=== PATIENT | female | born 1945 | race Caucasian/White ===

== ENCOUNTER 2018-04-18 18:46 | Inpatient (IN) | payer MEDICARE, BC ==
[~2018-04-18] VITALS: Ht 165.1 cm; Wt 107.0 kg
[2018-04-18] MEDS ORDERED: normal saline 1000ml 1,000 ML IV ONE (20:25)
[2018-04-18] MEDS ORDERED: ondansetron/PF 4mg/2ml inj IV ONE (20:30)
[2018-04-18] MEDS ORDERED: HYDROmorphone 1 mg/ml syringe IV ONE (20:30)
[2018-04-18] MEDS ORDERED: FENO135C PO (21:13)
[2018-04-18] MEDS ORDERED: HYDR-4353 PO (21:13)
[2018-04-18] MEDS ORDERED: ASPI-611 PO (21:13)
[2018-04-18] MEDS ORDERED: CARV25TA PO (21:13)
[2018-04-18] MEDS ORDERED: CLON-529 PO (21:13)
[2018-04-18] MEDS ORDERED: BENA40TA73 PO (21:13)
[2018-04-18] MEDS ORDERED: LOSA50TA3 PO (21:13)
[2018-04-18] MEDS ORDERED: SPIR25TA5 PO (21:13)
[2018-04-18 21:16] LABS: BASOPHILS % (AUTO) 0.2 % (0-1); EOSINOPHILS # (AUTO) 0.1 X10'3 (0-0.9); HEMATOCRIT 43.1 % (35.0-45.0); HEMOGLOBIN 14.4 g/dl (12.0-16.0); LYMPHOCYTES # (AUTO) 0.3 X10'3 (1.1-4.8); LYMPHOCYTES % (AUTO) 3.1 % (21-51); MEAN CORPUSCULAR HEMOGLOBIN 29.5 PG (27.0-31.0); MEAN CORPUSCULAR HGB CONC 33.3 % (33.0-36.5); MEAN CORPUSCULAR VOLUME 88.7 FL (78-98); MEAN PLATELET VOLUME 7.7 FL (7.4-10.4); MONOCYTES # (AUTO) 0.6 X10'3 (0-0.9); MONOCYTES % (AUTO) 5.6 % (2-12); NEUTROPHILS # (AUTO) 9.1 X10'3 (1.8-7.7); NEUTROPHILS % (AUTO) 90.1 % (42-75); PLATELET COUNT 225 X10'3 (140-440); RED BLOOD COUNT 4.86 X10'6 (4.20-5.60); RED CELL DISTRIBUTION WIDTH 14.9 % (11.5-14.5); WHITE BLOOD COUNT 10.1 X10'3 (4.5-11.0)
[2018-04-18 21:31] LABS: ALANINE AMINOTRANSFERASE 89 U/L (12-78); ALKALINE PHOSPHATASE 61 IU/L (46-116); ANION GAP 13 (8-16); ASPARTATE AMINO TRANSFERASE 43 U/L (10-37); BILIRUBIN,TOTAL 4.8 MG/DL (0.1-1.0); BLOOD UREA NITROGEN 20 MG/DL (7-18); BUN/CREATININE RATIO 18.7 (6.6-38.0); CALCIUM 8.1 MG/DL (8.5-10.1); CHLORIDE 99 MMOL/L (99-107); CREATININE 1.07 MG/DL (0.40-0.90); GLUCOSE 143 MG/DL (70-104); POTASSIUM 3.8 MMOL/L (3.5-5.1); SODIUM 137 MMOL/L (135-145); eGFR 50 ML/MIN
[2018-04-18 21:55] LABS: ALBUMIN/GLOBULIN RATIO 1.2 (1.1-1.5); TOTAL PROTEIN 5.6 G/DL (6.4-8.2)
[2018-04-18 21:56] LABS: AMYLASE 1425 U/L (25-115); LIPASE 14327 U/L (73-393)
[2018-04-18 22:08] LABS: INR 1.1 INR; PROTHROMBIN TIME 11.4 SECONDS (9.0-12.0)
[2018-04-18] MEDS ORDERED: carVEDilol 12.5mg tablet PO SCH (23:00)
[2018-04-18] MEDS ORDERED: losartan 50mg tablet PO SCH (23:00)
[2018-04-18] MEDS ORDERED: spironolactone 25 MG tablet PO SCH (23:00)
[2018-04-18] MEDS ORDERED: HYDROcodone/acetaminophen 10/325mg tab PO ONE (23:00)
[2018-04-18] MEDS ORDERED: lisinopril 10 MG tablet PO ONE (23:00)
[2018-04-18] MEDS ORDERED: HYDROmorphone 2mg tablet PO PRN (23:00)
[2018-04-19] VITALS (18 sets, daily range): BP systolic 89–182; BP diastolic 49–82
[2018-04-19 00:38] LABS: CLARITY,URINE SLIGHTLY CLOUDY (Clear); COLOR,URINE ORANGE (Yellow)
[2018-04-19 00:40] LABS: UA COLLECTION TYPE CLN CATCH MIDSTREAM
[2018-04-19 00:58] LABS: BACTERIA,URINE 4+ /HPF (Neg); SQUAMOUS EPITHELIAL CELL,UR FEW /LPF (FEW)
[2018-04-19 00:59] LABS: WBC,URINE 30-50 /HPF (0-4)
[2018-04-19] MEDS ORDERED: ondansetron/PF 4mg/2ml inj IV PRN (01:50)
[2018-04-19] MEDS ORDERED: mag hydrox/Alum hydrox/simeth 30ml oral suspension PO PRN (01:50)
[2018-04-19] MEDS ORDERED: docusate sod 100mg capsule PO PRN (01:50)
[2018-04-19] MEDS ORDERED: magnesium hydroxide 30ml (MOM) UD suspension PO PRN (01:50)
[2018-04-19] MEDS: normal saline 1000ml 1,000 ML IV SCH ×3 (04:00→14:49)
[2018-04-19] MEDS: HYDROmorphone 1 mg/ml syringe IV PRN ×2 (04:00→14:50)
[2018-04-19 05:59] LABS: BASOPHILS % (AUTO) 0 % (0-1); EOSINOPHILS % (AUTO) 0 % (0-6); HEMOGLOBIN 14.6 g/dl (12.0-16.0); LYMPHOCYTES # (AUTO) 0.3 X10'3 (1.1-4.8); LYMPHOCYTES % (AUTO) 2.4 % (21-51); MEAN CORPUSCULAR HEMOGLOBIN 29.4 PG (27.0-31.0); MEAN CORPUSCULAR HGB CONC 33.3 % (33.0-36.5); MEAN CORPUSCULAR VOLUME 88.4 FL (78-98); MEAN PLATELET VOLUME 7.9 FL (7.4-10.4); MONOCYTES # (AUTO) 0.7 X10'3 (0-0.9); MONOCYTES % (AUTO) 5.8 % (2-12); NEUTROPHILS # (AUTO) 10.5 X10'3 (1.8-7.7); NEUTROPHILS % (AUTO) 91.8 % (42-75); PLATELET COUNT 189 X10'3 (140-440); RED BLOOD COUNT 4.98 X10'6 (4.20-5.60); WHITE BLOOD COUNT 11.4 X10'3 (4.5-11.0)
[2018-04-19 06:28] LABS: ALANINE AMINOTRANSFERASE 158 U/L (12-78); ALBUMIN 2.8 G/DL (3.4-5.0); ALKALINE PHOSPHATASE 85 IU/L (46-116); ASPARTATE AMINO TRANSFERASE 192 U/L (10-37); BILIRUBIN,TOTAL 10.3 MG/DL (0.1-1.0)
[2018-04-19 06:41] LABS: ALBUMIN 2.8 G/DL (3.4-5.0); ANION GAP 13 (8-16); BLOOD UREA NITROGEN 21 MG/DL (7-18); BUN/CREATININE RATIO 20.6 (6.6-38.0); CALCIUM 8.2 MG/DL (8.5-10.1); CHLORIDE 100 MMOL/L (99-107); CREATININE 1.02 MG/DL (0.40-0.90); GLUCOSE 134 MG/DL (70-104); SODIUM 138 MMOL/L (135-145); TOTAL CARBON DIOXIDE 24.8 MMOL/L (24-32); eGFR 53 ML/MIN
[2018-04-19 06:43] LABS: BILIRUBIN,DIRECT 9.7 MG/DL (0-0.3); TOTAL PROTEIN 5.5 G/DL (6.4-8.2)
[2018-04-19 06:49] LABS: POTASSIUM 3.6 MMOL/L (3.5-5.1)
[2018-04-19 06:53] LABS: LIPASE 7327 U/L (73-393)
[2018-04-19] MEDS: cloNIDine 0.1 mg tablet PO SCH (08:17)
[2018-04-19] MEDS: carVEDilol 12.5mg tablet PO SCH (08:17)
[2018-04-19] MEDS: spironolactone 25 MG tablet PO SCH ×2 (08:17→21:48)
[2018-04-19] MEDS: losartan 50mg tablet PO SCH (08:18)
[2018-04-19] MEDS: lisinopril 20mg tablet PO SCH (08:18)
[2018-04-19] MEDS ORDERED: meperidine/PF 100mg/ml syringe ONE (17:35)
[2018-04-19] MEDS ORDERED: MIDAZolam 5mg/5ml vial ONE (17:36)
[2018-04-19] MEDS ORDERED: diphenhydrAMINE 50 mg/ml inj ONE (17:36)
[2018-04-19] MEDS ORDERED: fentaNYL/PF 50MCG/1 ML 2ML syringe ONE (17:36)
[2018-04-19] MEDS ORDERED: glucagon, human recombinant 1mg kit ONE (17:39)
[2018-04-19] MEDS ORDERED: levoFLOXACIN-Levaquin 500mg/D5 100 ML IV ONE (19:20)
[2018-04-20] MEDS: HYDROmorphone 1 mg/ml syringe IV PRN ×3 (00:48→14:00)
[2018-04-20 04:00] VITALS: BP 149/51
[2018-04-20] MEDS: normal saline 1000ml 1,000 ML IV SCH ×3 (04:34→23:53)
[2018-04-20 05:59] LABS: BASOPHILS % (AUTO) 0 % (0-1); EOSINOPHILS % (AUTO) 0.2 % (0-6); HEMATOCRIT 38.1 % (35.0-45.0); HEMOGLOBIN 12.6 g/dl (12.0-16.0); LYMPHOCYTES # (AUTO) 0.3 X10'3 (1.1-4.8); LYMPHOCYTES % (AUTO) 2.3 % (21-51); MEAN CORPUSCULAR HEMOGLOBIN 29.6 PG (27.0-31.0); MEAN CORPUSCULAR HGB CONC 33.2 % (33.0-36.5); MEAN CORPUSCULAR VOLUME 89.2 FL (78-98); MEAN PLATELET VOLUME 8.5 FL (7.4-10.4); MONOCYTES # (AUTO) 0.4 X10'3 (0-0.9); MONOCYTES % (AUTO) 3.5 % (2-12); NEUTROPHILS # (AUTO) 11.3 X10'3 (1.8-7.7); PLATELET COUNT 167 X10'3 (140-440); RED BLOOD COUNT 4.27 X10'6 (4.20-5.60); RED CELL DISTRIBUTION WIDTH 15.7 % (11.5-14.5); WHITE BLOOD COUNT 12.1 X10'3 (4.5-11.0)
[2018-04-20 06:09] LABS: ALBUMIN 2.3 G/DL (3.4-5.0); ANION GAP 11 (8-16); BLOOD UREA NITROGEN 34 MG/DL (7-18); CALCIUM 7.3 MG/DL (8.5-10.1); CHLORIDE 100 MMOL/L (99-107); CREATININE 2.26 MG/DL (0.40-0.90); GLUCOSE 81 MG/DL (70-104); POTASSIUM 3.9 MMOL/L (3.5-5.1); SODIUM 135 MMOL/L (135-145); eGFR 21 ML/MIN
[2018-04-20 07:33] VITALS: BP 114/62
[2018-04-20] MEDS: cloNIDine 0.1 mg tablet PO SCH (08:00)
[2018-04-20] MEDS: losartan 50mg tablet PO SCH (08:00)
[2018-04-20] MEDS: lisinopril 20mg tablet PO SCH (08:00)
[2018-04-20] MEDS: carVEDilol 12.5mg tablet PO SCH (08:01)
[2018-04-20] MEDS: spironolactone 25 MG tablet PO SCH ×2 (08:01→20:37)
[2018-04-20 11:29] VITALS: BP 135/55
[2018-04-20 12:31] LABS: ALANINE AMINOTRANSFERASE 139 U/L (12-78); ASPARTATE AMINO TRANSFERASE 70 U/L (10-37); LIPASE 1006 U/L (73-393)
[2018-04-20 12:44] LABS: ALBUMIN 2.3 G/DL (3.4-5.0); ALBUMIN/GLOBULIN RATIO 0.8 (1.1-1.5); ALKALINE PHOSPHATASE 78 IU/L (46-116); BILIRUBIN,DIRECT 4.1 MG/DL (0-0.3); BILIRUBIN,TOTAL 4.6 MG/DL (0.1-1.0); TOTAL PROTEIN 5.1 G/DL (6.4-8.2)
[2018-04-20] MEDS: HYDROcodone/acetaminophen 10/325mg tab PO PRN ×2 (17:39→23:52)
[2018-04-20] MEDS ORDERED: LORazepam 0.5 MG tablet PO ONE (19:20)
[2018-04-20 20:00] VITALS: BP 147/60
[2018-04-20] MEDS ORDERED: losartan 50mg tablet PO SCH (21:00)
[2018-04-20] MEDS ORDERED: CefTRIAXone/D5W-Rocephin 1gm 50 ML IV SCH (21:00)
[2018-04-21] VITALS (10 sets, daily range): BP systolic 104–155; BP diastolic 50–86
[2018-04-21] MEDS ORDERED: normal saline 500ml IV soln 500 ML IV ONE (03:40)
[2018-04-21 05:43] LABS: BASOPHILS % (AUTO) 0.1 % (0-1); EOSINOPHILS % (AUTO) 0 % (0-6); HEMATOCRIT 36.2 % (35.0-45.0); LYMPHOCYTES # (AUTO) 0.4 X10'3 (1.1-4.8); LYMPHOCYTES % (AUTO) 3.2 % (21-51); MEAN CORPUSCULAR HEMOGLOBIN 29.6 PG (27.0-31.0); MEAN CORPUSCULAR HGB CONC 33.1 % (33.0-36.5); MEAN CORPUSCULAR VOLUME 89.4 FL (78-98); MONOCYTES # (AUTO) 0.5 X10'3 (0-0.9); MONOCYTES % (AUTO) 4.5 % (2-12); NEUTROPHILS # (AUTO) 10.2 X10'3 (1.8-7.7); NEUTROPHILS % (AUTO) 92.2 % (42-75); PLATELET COUNT 181 X10'3 (140-440); RED BLOOD COUNT 4.05 X10'6 (4.20-5.60); RED CELL DISTRIBUTION WIDTH 15.6 % (11.5-14.5); WHITE BLOOD COUNT 11.1 X10'3 (4.5-11.0)
[2018-04-21 06:12] LABS: ALANINE AMINOTRANSFERASE 95 U/L (12-78); ALBUMIN 2.1 G/DL (3.4-5.0); ALBUMIN/GLOBULIN RATIO 0.7 (1.1-1.5); ALKALINE PHOSPHATASE 66 IU/L (46-116); ANION GAP 12 (8-16); ASPARTATE AMINO TRANSFERASE 36 U/L (10-37); BILIRUBIN,TOTAL 2.4 MG/DL (0.1-1.0); BLOOD UREA NITROGEN 47 MG/DL (7-18); BUN/CREATININE RATIO 16.2 (6.6-38.0); CALCIUM 7.4 MG/DL (8.5-10.1); CHLORIDE 101 MMOL/L (99-107); GLUCOSE 78 MG/DL (70-104); SODIUM 135 MMOL/L (135-145); TOTAL CARBON DIOXIDE 21.7 MMOL/L (24-32); TOTAL PROTEIN 5.1 G/DL (6.4-8.2); eGFR 16 ML/MIN
[2018-04-21] MEDS: cloNIDine 0.1 mg tablet PO SCH (08:00)
[2018-04-21] MEDS: lisinopril 20mg tablet PO SCH (08:00)
[2018-04-21] MEDS: normal saline 1000ml 1,000 ML IV SCH (08:17)
[2018-04-21] MEDS: carVEDilol 12.5mg tablet PO SCH (08:18)
[2018-04-21] MEDS: spironolactone 25 MG tablet PO SCH (08:19)
[2018-04-21] MEDS: HYDROcodone/acetaminophen 10/325mg tab PO PRN ×2 (08:19→22:43)
[2018-04-21 13:04] LABS: TROPONIN I 0.18 NG/ML (0.0-0.05)
[2018-04-21] MEDS ORDERED: furosemide 20 MG/2 ML vial IV SCH (13:50)
[2018-04-21 15:31] LABS: ABG BASE EXCESS -7.9 mmol/L (-2.0-3.0); ABG HCO3 21.3 mmol/L (22.0-26.0); ABG OXYGEN SATURATION 96.3 % (95-98); ABG PCO2 (T) 60.4 mmHg (32.0-45.0); ABG PH (T) 7.165 (7.350-7.450); ALLEN'S TEST Positive; FCOHb 0.2 % (0.5-1.5); FMetHb 0.5 % (0.3-1.12); FO2Hb 95.6 % (94-100); TOTAL HEMOGLOBIN 12.9 G/dl (12.0-16.0)
[2018-04-21] MEDS: cefepime 1GM/NS ADD-VANTAGE 100 ML IV SCH ×2 (16:45→17:40)
[2018-04-21] MEDS: HYDROmorphone 1 mg/ml syringe IV PRN ×2 (16:46→20:37)
[2018-04-21 17:39] LABS: TROPONIN I 0.18 NG/ML (0.0-0.05)
[2018-04-21 17:51] LABS: ABG BASE EXCESS -8.6 mmol/L (-2.0-3.0); ABG HCO3 20.4 mmol/L (22.0-26.0); ABG OXYGEN SATURATION 96.1 % (95-98); ABG PCO2 (T) 57.3 mmHg (32.0-45.0); ABG PH (T) 7.169 (7.350-7.450); ABG PO2 (T) 88.5 mmHg (83-108); ALLEN'S TEST Positive; FCOHb 0.2 % (0.5-1.5); FMetHb 0.3 % (0.3-1.12); FO2Hb 95.6 % (94-100); MINUTE VOLUME 7 L/min; RESPIRATORY RATE 14 b/min; RESPIRATORY RATE (OBSERVED) 18 b/min; TOTAL HEMOGLOBIN 12.8 G/dl (12.0-16.0)
[2018-04-21] MEDS: linezolid 600mg/300ml PREMIX 300 ML IV SCH (19:53)
[2018-04-21] MEDS: furosemide 40mg/4ml inj IV SCH (19:53)
[2018-04-21] MEDS ORDERED: triamcinolone acet 0.1% cream 15gm TP SCH (20:00)
[2018-04-21] MEDS: hydrALAZINE 20mg/ml inj. IV SCH (20:06)
[2018-04-21 20:45] LABS: ABG BASE EXCESS -10.2 mmol/L (-2.0-3.0); ABG HCO3 17.1 mmol/L (22.0-26.0); ABG PH (T) 7.233 (7.350-7.450); ABG PO2 (T) 86.7 mmHg (83-108); ALLEN'S TEST Positive; FCOHb 0.4 % (0.5-1.5); FMetHb 0.3 % (0.3-1.12); FO2Hb 96.3 % (94-100); MINUTE VOLUME 8 L/min; RESPIRATORY RATE 14 b/min; RESPIRATORY RATE (OBSERVED) 15 b/min; TOTAL HEMOGLOBIN 12.9 G/dl (12.0-16.0)
[2018-04-21 21:59] LABS: ALBUMIN 2.3 G/DL (3.4-5.0); ANION GAP 15 (8-16); CALCIUM 7.4 MG/DL (8.5-10.1); CHLORIDE 98 MMOL/L (99-107); CREATININE 2.93 MG/DL (0.40-0.90); GLUCOSE 89 MG/DL (70-104); POTASSIUM 4.3 MMOL/L (3.5-5.1); SODIUM 133 MMOL/L (135-145); TOTAL CARBON DIOXIDE 19.7 MMOL/L (24-32); eGFR 16 ML/MIN
[2018-04-21 22:08] LABS: BLOOD UREA NITROGEN 54 MG/DL (7-18); BUN/CREATININE RATIO 18.4 (6.6-38.0)
[2018-04-22] VITALS (23 sets, daily range): BP systolic 90–155; BP diastolic 48–69
[2018-04-22] MEDS: HYDROmorphone 1 mg/ml syringe IV PRN ×4 (00:28→23:13)
[2018-04-22] MEDS: hydrALAZINE 20mg/ml inj. IV SCH ×4 (02:25→19:51)
[2018-04-22] MEDS: HYDROcodone/acetaminophen 10/325mg tab PO PRN ×3 (05:04→19:36)
[2018-04-22 05:05] LABS: BASOPHILS % (AUTO) 0.1 % (0-1); EOSINOPHILS % (AUTO) 0 % (0-6); HEMATOCRIT 36.8 % (35.0-45.0); HEMOGLOBIN 12.1 g/dl (12.0-16.0); LYMPHOCYTES # (AUTO) 0.2 X10'3 (1.1-4.8); LYMPHOCYTES % (AUTO) 2.4 % (21-51); MEAN CORPUSCULAR HEMOGLOBIN 29.3 PG (27.0-31.0); MEAN CORPUSCULAR HGB CONC 32.7 % (33.0-36.5); MEAN CORPUSCULAR VOLUME 89.5 FL (78-98); MEAN PLATELET VOLUME 8.5 FL (7.4-10.4); MONOCYTES # (AUTO) 0.6 X10'3 (0-0.9); MONOCYTES % (AUTO) 5.6 % (2-12); NEUTROPHILS # (AUTO) 9.4 X10'3 (1.8-7.7); NEUTROPHILS % (AUTO) 91.9 % (42-75); PLATELET COUNT 204 X10'3 (140-440); RED BLOOD COUNT 4.11 X10'6 (4.20-5.60); RED CELL DISTRIBUTION WIDTH 15.6 % (11.5-14.5); WHITE BLOOD COUNT 10.3 X10'3 (4.5-11.0)
[2018-04-22 05:41] LABS: ALANINE AMINOTRANSFERASE 73 U/L (12-78); ALBUMIN 2.1 G/DL (3.4-5.0); ALBUMIN/GLOBULIN RATIO 0.6 (1.1-1.5); ALKALINE PHOSPHATASE 67 IU/L (46-116); ANION GAP 14 (8-16); ASPARTATE AMINO TRANSFERASE 23 U/L (10-37); BILIRUBIN,TOTAL 1.5 MG/DL (0.1-1.0); BLOOD UREA NITROGEN 56 MG/DL (7-18); BUN/CREATININE RATIO 21.5 (6.6-38.0); CALCIUM 7.6 MG/DL (8.5-10.1); CHLORIDE 98 MMOL/L (99-107); CREATININE 2.61 MG/DL (0.40-0.90); GLUCOSE 78 MG/DL (70-104); MAGNESIUM 1.3 MG/DL (1.5-2.4); PHOSPHORUS 5.2 MG/DL (2.3-4.5); POTASSIUM 3.9 MMOL/L (3.5-5.1); SODIUM 133 MMOL/L (135-145); TOTAL CARBON DIOXIDE 21.2 MMOL/L (24-32); TOTAL PROTEIN 5.4 G/DL (6.4-8.2); eGFR 18 ML/MIN
[2018-04-22 06:38] LABS: TOTAL CELLS COUNTED 100
[2018-04-22 06:39] LABS: ANISOCYTOSIS 1+; PLATELET ESTIMATE NORMAL
[2018-04-22 06:40] LABS: TOXIC VACUOLATION 1+
[2018-04-22] MEDS: linezolid 600mg/300ml PREMIX 300 ML IV SCH ×2 (08:31→19:51)
[2018-04-22] MEDS: furosemide 40mg/4ml inj IV SCH ×2 (08:33→21:46)
[2018-04-22] MEDS: carVEDilol 12.5mg tablet PO SCH (09:43)
[2018-04-22] MEDS: cloNIDine 0.1 mg tablet PO SCH (09:43)
[2018-04-22] MEDS: metroNIDAZOLE-Flagyl 500mg/NS 100 ML IV SCH ×2 (16:27→23:13)
[2018-04-22] MEDS: lactobacillus rhamnosus 10,000 MMU CELLS/CAPSULE PO SCH (19:35)
[2018-04-22] MEDS ORDERED: albumin (human) 25% 100 ML IV solution IV ONE (20:00)
[2018-04-23] VITALS (24 sets, daily range): BP systolic 101–148; BP diastolic 48–72
[2018-04-23] MEDS: hydrALAZINE 20mg/ml inj. IV SCH ×4 (02:28→20:00)
[2018-04-23 02:49] LABS: BASOPHILS % (AUTO) 0.1 % (0-1); EOSINOPHILS % (AUTO) 0.2 % (0-6); HEMATOCRIT 34.5 % (35.0-45.0); HEMOGLOBIN 11.5 g/dl (12.0-16.0); LYMPHOCYTES # (AUTO) 0.4 X10'3 (1.1-4.8); LYMPHOCYTES % (AUTO) 3.6 % (21-51); MEAN CORPUSCULAR HEMOGLOBIN 29.5 PG (27.0-31.0); MEAN CORPUSCULAR HGB CONC 33.3 % (33.0-36.5); MEAN CORPUSCULAR VOLUME 88.6 FL (78-98); MEAN PLATELET VOLUME 8.1 FL (7.4-10.4); MONOCYTES # (AUTO) 0.8 X10'3 (0-0.9); MONOCYTES % (AUTO) 7.5 % (2-12); NEUTROPHILS # (AUTO) 9.3 X10'3 (1.8-7.7); NEUTROPHILS % (AUTO) 88.6 % (42-75); PLATELET COUNT 233 X10'3 (140-440); RED BLOOD COUNT 3.89 X10'6 (4.20-5.60); RED CELL DISTRIBUTION WIDTH 15.3 % (11.5-14.5); WHITE BLOOD COUNT 10.6 X10'3 (4.5-11.0)
[2018-04-23 02:53] LABS: ALBUMIN 2.3 G/DL (3.4-5.0); ANION GAP 12 (8-16); BLOOD UREA NITROGEN 64 MG/DL (7-18); BUN/CREATININE RATIO 23.9 (6.6-38.0); CALCIUM 7.8 MG/DL (8.5-10.1); CHLORIDE 96 MMOL/L (99-107); CREATININE 2.68 MG/DL (0.40-0.90); GLUCOSE 99 MG/DL (70-104); POTASSIUM 3.7 MMOL/L (3.5-5.1); SODIUM 131 MMOL/L (135-145); TOTAL CARBON DIOXIDE 22.8 MMOL/L (24-32); eGFR 17 ML/MIN
[2018-04-23] MEDS: HYDROcodone/acetaminophen 10/325mg tab PO PRN ×2 (03:40→16:37)
[2018-04-23] MEDS: lactobacillus rhamnosus 10,000 MMU CELLS/CAPSULE PO SCH ×2 (07:10→19:55)
[2018-04-23] MEDS: carVEDilol 12.5mg tablet PO SCH (07:10)
[2018-04-23] MEDS: cloNIDine 0.1 mg tablet PO SCH (07:11)
[2018-04-23] MEDS: metroNIDAZOLE-Flagyl 500mg/NS 100 ML IV SCH (07:11)
[2018-04-23] MEDS: furosemide 40mg/4ml inj IV SCH (07:11)
[2018-04-23] MEDS: cefepime 1GM/NS ADD-VANTAGE 100 ML IV SCH (07:11)
[2018-04-23] MEDS: linezolid 600mg/300ml PREMIX 300 ML IV SCH ×2 (07:11→21:34)
[2018-04-23 11:26] LABS: ABG BASE EXCESS -8.6 mmol/L (-2.0-3.0); ABG HCO3 20.4 mmol/L (22.0-26.0); ABG OXYGEN SATURATION 97.3 % (95-98); ABG PCO2 (T) 57.3 mmHg (32.0-45.0); ABG PH (T) 7.168 (7.350-7.450); ABG PO2 (T) 100.4 mmHg (83-108); ALLEN'S TEST Positive; FCOHb 0.3 % (0.5-1.5); FLOW 3 L/min; FMetHb 0.3 % (0.3-1.12); FO2Hb 96.7 % (94-100); PATIENT TEMPERATURE 36.9; TOTAL HEMOGLOBIN 12.8 G/dl (12.0-16.0)
[2018-04-23 14:36] LABS: ABG BASE EXCESS -7.1 mmol/L (-2.0-3.0); ABG HCO3 21.4 mmol/L (22.0-26.0); ABG OXYGEN SATURATION 96.8 % (95-98); ABG PCO2 (T) 55.9 mmHg (32.0-45.0); ABG PH (T) 7.201 (7.350-7.450); ABG PO2 (T) 95.4 mmHg (83-108); ALLEN'S TEST Positive; FCOHb 0.5 % (0.5-1.5); FMetHb 0.3 % (0.3-1.12); MINUTE VOLUME 8 L/min; PATIENT TEMPERATURE 36.9; PEEP 5 cm H2O; RESPIRATORY RATE 20 b/min; RESPIRATORY RATE (OBSERVED) 23 b/min; TIDAL VOLUME 419 mL; TOTAL HEMOGLOBIN 13.1 G/dl (12.0-16.0)
[2018-04-23] MEDS ORDERED: furosemide inj 100 ML IV SCH (16:55)
[2018-04-23] MEDS: NUT.TX.IMPAIRED DIGEST FXN (Ensure Clear) 237 ML PO SCH (18:05)
[2018-04-23] MEDS ORDERED: albumin (human) 25% 100 ML IV solution IV ONE (19:00)
[2018-04-23 21:20] LABS: ALBUMIN 2.3 G/DL (3.4-5.0); ANION GAP 15 (8-16); BLOOD UREA NITROGEN 71 MG/DL (7-18); BUN/CREATININE RATIO 24.4 (6.6-38.0); CALCIUM 8.1 MG/DL (8.5-10.1); CHLORIDE 95 MMOL/L (99-107); CREATININE 2.91 MG/DL (0.40-0.90); GLUCOSE 105 MG/DL (70-104); POTASSIUM 3.6 MMOL/L (3.5-5.1); SODIUM 130 MMOL/L (135-145); TOTAL CARBON DIOXIDE 20.1 MMOL/L (24-32); eGFR 16 ML/MIN
[2018-04-23] MEDS: furosemide inj 100 ML IV SCH (21:27)
[2018-04-24] VITALS (22 sets, daily range): BP systolic 104–155; BP diastolic 54–88
[2018-04-24] MEDS: HYDROcodone/acetaminophen 10/325mg tab PO PRN ×4 (02:53→20:51)
[2018-04-24] MEDS: hydrALAZINE 20mg/ml inj. IV SCH ×4 (03:14→19:53)
[2018-04-24] MEDS ORDERED: HYDROmorphone 1 mg/ml syringe IV ONE (05:40)
[2018-04-24 06:49] LABS: ALBUMIN 2.3 G/DL (3.4-5.0); ANION GAP 14 (8-16); BLOOD UREA NITROGEN 73 MG/DL (7-18); BUN/CREATININE RATIO 26.7 (6.6-38.0); CALCIUM 7.9 MG/DL (8.5-10.1); CHLORIDE 94 MMOL/L (99-107); CREATININE 2.73 MG/DL (0.40-0.90); GLUCOSE 101 MG/DL (70-104); POTASSIUM 3.3 MMOL/L (3.5-5.1); SODIUM 130 MMOL/L (135-145); eGFR 17 ML/MIN
[2018-04-24] MEDS: furosemide inj 100 ML IV SCH ×3 (07:08→19:02)
[2018-04-24] MEDS: linezolid 600mg/300ml PREMIX 300 ML IV SCH (07:44)
[2018-04-24] MEDS: cefepime 1GM/NS ADD-VANTAGE 100 ML IV SCH (07:44)
[2018-04-24] MEDS: carVEDilol 12.5mg tablet PO SCH (07:45)
[2018-04-24] MEDS: cloNIDine 0.1 mg tablet PO SCH (07:45)
[2018-04-24] MEDS: lactobacillus rhamnosus 10,000 MMU CELLS/CAPSULE PO SCH ×2 (07:45→19:57)
[2018-04-24] MEDS: NUT.TX.IMPAIRED DIGEST FXN (Ensure Clear) 237 ML PO SCH ×3 (08:00→18:00)
[2018-04-24] MEDS ORDERED: pantoprazole 40 MG vial IV ONE (09:55)
[2018-04-24] MEDS: ondansetron/PF 4mg/2ml inj IV PRN (10:24)
[2018-04-24 10:40] LABS: ALBUMIN 2.2 G/DL (3.4-5.0); ANION GAP 13 (8-16); BLOOD UREA NITROGEN 75 MG/DL (7-18); BUN/CREATININE RATIO 27.5 (6.6-38.0); CALCIUM 7.5 MG/DL (8.5-10.1); CHLORIDE 94 MMOL/L (99-107); CREATININE 2.73 MG/DL (0.40-0.90); GLUCOSE 128 MG/DL (70-104); POTASSIUM 3.3 MMOL/L (3.5-5.1); SODIUM 130 MMOL/L (135-145); TOTAL CARBON DIOXIDE 22.8 MMOL/L (24-32); eGFR 17 ML/MIN
[2018-04-24 14:41] LABS: ABG BASE EXCESS -5.8 mmol/L (-2.0-3.0); ABG HCO3 19.7 mmol/L (22.0-26.0); ABG PCO2 (T) 38.7 mmHg (32.0-45.0); ABG PH (T) 7.324 (7.350-7.450); ABG PO2 (T) 96.7 mmHg (83-108); FCOHb 0.4 % (0.5-1.5); FMetHb 0.3 % (0.3-1.12); FO2Hb 96.3 % (94-100); MINUTE VOLUME 11 L/min; RESPIRATORY RATE 23 b/min; RESPIRATORY RATE (OBSERVED) 23 b/min; TIDAL VOLUME 456 mL; TOTAL HEMOGLOBIN 12.6 G/dl (12.0-16.0)
[2018-04-24 16:03] LABS: ALBUMIN 2.2 G/DL (3.4-5.0); ANION GAP 13 (8-16); BLOOD UREA NITROGEN 76 MG/DL (7-18); CALCIUM 7.8 MG/DL (8.5-10.1); CHLORIDE 95 MMOL/L (99-107); CREATININE 2.81 MG/DL (0.40-0.90); GLUCOSE 103 MG/DL (70-104); POTASSIUM 3.4 MMOL/L (3.5-5.1); SODIUM 129 MMOL/L (135-145); TOTAL CARBON DIOXIDE 21.4 MMOL/L (24-32); eGFR 16 ML/MIN
[2018-04-24] MEDS: heparin, porcine 5000 units/ml vial SQ SCH (19:58)
[2018-04-24] MEDS: mag hydrox/Alum hydrox/simeth 30ml oral suspension PO SCH (20:01)
[2018-04-24 22:10] LABS: ALBUMIN 2.1 G/DL (3.4-5.0); ANION GAP 14 (8-16); BLOOD UREA NITROGEN 79 MG/DL (7-18); BUN/CREATININE RATIO 27.9 (6.6-38.0); CALCIUM 8.3 MG/DL (8.5-10.1); CHLORIDE 95 MMOL/L (99-107); CREATININE 2.83 MG/DL (0.40-0.90); GLUCOSE 109 MG/DL (70-104); POTASSIUM 3.3 MMOL/L (3.5-5.1); SODIUM 131 MMOL/L (135-145); TOTAL CARBON DIOXIDE 22.2 MMOL/L (24-32); eGFR 16 ML/MIN
[2018-04-24] MEDS: acetaminophen 325mg tablet PO PRN (23:30)
[2018-04-25] VITALS (24 sets, daily range): BP systolic 100–138; BP diastolic 42–72
[2018-04-25] MEDS: HYDROcodone/acetaminophen 10/325mg tab PO PRN ×4 (01:29→20:07)
[2018-04-25] MEDS: hydrALAZINE 20mg/ml inj. IV SCH ×4 (01:34→20:00)
[2018-04-25] MEDS: furosemide inj 100 ML IV SCH ×3 (04:50→23:09)
[2018-04-25 06:04] LABS: ALBUMIN 2.2 G/DL (3.4-5.0); ANION GAP 15 (8-16); BLOOD UREA NITROGEN 80 MG/DL (7-18); BUN/CREATININE RATIO 29.3 (6.6-38.0); CHLORIDE 93 MMOL/L (99-107); CREATININE 2.73 MG/DL (0.40-0.90); GLUCOSE 97 MG/DL (70-104); POTASSIUM 3.3 MMOL/L (3.5-5.1); SODIUM 131 MMOL/L (135-145); TOTAL CARBON DIOXIDE 23.5 MMOL/L (24-32); eGFR 17 ML/MIN
[2018-04-25 06:12] LABS: BASOPHILS % (AUTO) 0 % (0-1); EOSINOPHILS # (AUTO) 0.2 X10'3 (0-0.9); HEMATOCRIT 36.2 % (35.0-45.0); LYMPHOCYTES # (AUTO) 0.4 X10'3 (1.1-4.8); LYMPHOCYTES % (AUTO) 3.5 % (21-51); MEAN CORPUSCULAR HEMOGLOBIN 29.3 PG (27.0-31.0); MEAN CORPUSCULAR HGB CONC 33.1 % (33.0-36.5); MEAN CORPUSCULAR VOLUME 88.5 FL (78-98); MEAN PLATELET VOLUME 8.1 FL (7.4-10.4); MONOCYTES # (AUTO) 1.2 X10'3 (0-0.9); NEUTROPHILS # (AUTO) 8.3 X10'3 (1.8-7.7); NEUTROPHILS % (AUTO) 82.5 % (42-75); PLATELET COUNT 285 X10'3 (140-440); RED CELL DISTRIBUTION WIDTH 15.1 % (11.5-14.5); WHITE BLOOD COUNT 10.1 X10'3 (4.5-11.0)
[2018-04-25] MEDS: carVEDilol 12.5mg tablet PO SCH (07:22)
[2018-04-25] MEDS: cloNIDine 0.1 mg tablet PO SCH (07:23)
[2018-04-25] MEDS: lactobacillus rhamnosus 10,000 MMU CELLS/CAPSULE PO SCH ×2 (07:23→20:04)
[2018-04-25] MEDS: cefepime 1GM/NS ADD-VANTAGE 100 ML IV SCH (07:24)
[2018-04-25] MEDS: heparin, porcine 5000 units/ml vial SQ SCH ×2 (07:24→20:05)
[2018-04-25] MEDS: mag hydrox/Alum hydrox/simeth 30ml oral suspension PO SCH ×2 (07:24→20:04)
[2018-04-25] MEDS: NUT.TX.IMPAIRED DIGEST FXN (Ensure Clear) 237 ML PO SCH ×3 (08:42→18:06)
[2018-04-25 09:58] LABS: ALBUMIN 2.1 G/DL (3.4-5.0); ANION GAP 17 (8-16); BLOOD UREA NITROGEN 84 MG/DL (7-18); BUN/CREATININE RATIO 31.5 (6.6-38.0); CALCIUM 8.2 MG/DL (8.5-10.1); CHLORIDE 93 MMOL/L (99-107); CREATININE 2.67 MG/DL (0.40-0.90); GLUCOSE 97 MG/DL (70-104); POTASSIUM 3.3 MMOL/L (3.5-5.1); SODIUM 131 MMOL/L (135-145); TOTAL CARBON DIOXIDE 21.3 MMOL/L (24-32); eGFR 17 ML/MIN
[2018-04-25 16:19] LABS: ALBUMIN 2.1 G/DL (3.4-5.0); ANION GAP 12 (8-16); BLOOD UREA NITROGEN 85 MG/DL (7-18); BUN/CREATININE RATIO 31.6 (6.6-38.0); CALCIUM 8.4 MG/DL (8.5-10.1); CHLORIDE 95 MMOL/L (99-107); CREATININE 2.69 MG/DL (0.40-0.90); GLUCOSE 126 MG/DL (70-104); POTASSIUM 3.3 MMOL/L (3.5-5.1); SODIUM 131 MMOL/L (135-145); TOTAL CARBON DIOXIDE 23.9 MMOL/L (24-32); eGFR 17 ML/MIN
[2018-04-25 17:01] LABS: ABG BASE EXCESS -3.8 mmol/L (-2.0-3.0); ABG HCO3 22.8 mmol/L (22.0-26.0); ABG OXYGEN SATURATION 98.1 % (95-98); ABG PCO2 (T) 47.5 mmHg (32.0-45.0); ABG PO2 (T) 115.4 mmHg (83-108); ALLEN'S TEST Positive; FCOHb 0.8 % (0.5-1.5); FLOW 3 L/min; FMetHb 0.1 % (0.3-1.12); FO2Hb 97.2 % (94-100); TOTAL HEMOGLOBIN 13.4 G/dl (12.0-16.0)
[2018-04-25 20:55] LABS: ALBUMIN 2.1 G/DL (3.4-5.0); ANION GAP 13 (8-16); BLOOD UREA NITROGEN 87 MG/DL (7-18); BUN/CREATININE RATIO 33.5 (6.6-38.0); CALCIUM 8.4 MG/DL (8.5-10.1); CHLORIDE 94 MMOL/L (99-107); GLUCOSE 154 MG/DL (70-104); POTASSIUM 3.3 MMOL/L (3.5-5.1); SODIUM 132 MMOL/L (135-145); TOTAL CARBON DIOXIDE 24.9 MMOL/L (24-32); eGFR 18 ML/MIN
[2018-04-26] VITALS (24 sets, daily range): BP systolic 90–166; BP diastolic 40–97
[2018-04-26] MEDS: hydrALAZINE 20mg/ml inj. IV SCH ×5 (01:22→20:00)
[2018-04-26] MEDS: HYDROcodone/acetaminophen 10/325mg tab PO PRN ×2 (02:03→08:58)
[2018-04-26] MEDS ORDERED: LORazepam 0.5 MG tablet PO ONE (03:50)
[2018-04-26 05:23] LABS: ALBUMIN 2.1 G/DL (3.4-5.0); ANION GAP 12 (8-16); BLOOD UREA NITROGEN 86 MG/DL (7-18); BUN/CREATININE RATIO 35.8 (6.6-38.0); CALCIUM 8.4 MG/DL (8.5-10.1); CHLORIDE 94 MMOL/L (99-107); GLUCOSE 132 MG/DL (70-104); POTASSIUM 3.3 MMOL/L (3.5-5.1); SODIUM 132 MMOL/L (135-145); TOTAL CARBON DIOXIDE 25.8 MMOL/L (24-32); eGFR 20 ML/MIN
[2018-04-26 06:21] LABS: BASOPHILS % (AUTO) 0 % (0-1); EOSINOPHILS # (AUTO) 0.4 X10'3 (0-0.9); EOSINOPHILS % (AUTO) 3.4 % (0-6); HEMATOCRIT 36.3 % (35.0-45.0); HEMOGLOBIN 12.1 g/dl (12.0-16.0); LYMPHOCYTES # (AUTO) 0.4 X10'3 (1.1-4.8); MEAN CORPUSCULAR HEMOGLOBIN 29.1 PG (27.0-31.0); MEAN CORPUSCULAR HGB CONC 33.2 % (33.0-36.5); MEAN CORPUSCULAR VOLUME 87.7 FL (78-98); MEAN PLATELET VOLUME 8.2 FL (7.4-10.4); MONOCYTES # (AUTO) 1.5 X10'3 (0-0.9); MONOCYTES % (AUTO) 14.1 % (2-12); NEUTROPHILS # (AUTO) 8.1 X10'3 (1.8-7.7); NEUTROPHILS % (AUTO) 78.5 % (42-75); PLATELET COUNT 312 X10'3 (140-440); RED BLOOD COUNT 4.14 X10'6 (4.20-5.60); WHITE BLOOD COUNT 10.4 X10'3 (4.5-11.0)
[2018-04-26] MEDS: carVEDilol 12.5mg tablet PO SCH ×2 (08:00→09:22)
[2018-04-26] MEDS: cefepime 1GM/NS ADD-VANTAGE 100 ML IV SCH (08:44)
[2018-04-26] MEDS: heparin, porcine 5000 units/ml vial SQ SCH ×2 (08:45→21:07)
[2018-04-26] MEDS: cloNIDine 0.1 mg tablet PO SCH (08:45)
[2018-04-26] MEDS: lactobacillus rhamnosus 10,000 MMU CELLS/CAPSULE PO SCH ×2 (08:45→21:05)
[2018-04-26] MEDS: NUT.TX.IMPAIRED DIGEST FXN (Ensure Clear) 237 ML PO SCH ×3 (08:46→18:00)
[2018-04-26] MEDS: furosemide inj 100 ML IV SCH ×2 (09:22→16:16)
[2018-04-26 09:27] LABS: ALBUMIN 2.1 G/DL (3.4-5.0); ANION GAP 10 (8-16); BLOOD UREA NITROGEN 86 MG/DL (7-18); BUN/CREATININE RATIO 38.9 (6.6-38.0); CALCIUM 8.3 MG/DL (8.5-10.1); CHLORIDE 94 MMOL/L (99-107); CREATININE 2.21 MG/DL (0.40-0.90); GLUCOSE 116 MG/DL (70-104); POTASSIUM 3.2 MMOL/L (3.5-5.1); SODIUM 132 MMOL/L (135-145); TOTAL CARBON DIOXIDE 28.2 MMOL/L (24-32); eGFR 22 ML/MIN
[2018-04-26] MEDS ORDERED: potassium Cl 20 mEq SR tablet PO PRN (10:25)
[2018-04-26] MEDS: potassium Cl 20 mEq SR tablet PO PRN ×2 (12:24→21:05)
[2018-04-26 16:47] LABS: ALBUMIN 2.1 G/DL (3.4-5.0); ANION GAP 11 (8-16); BLOOD UREA NITROGEN 92 MG/DL (7-18); BUN/CREATININE RATIO 40.4 (6.6-38.0); CALCIUM 8.3 MG/DL (8.5-10.1); CHLORIDE 94 MMOL/L (99-107); CREATININE 2.28 MG/DL (0.40-0.90); GLUCOSE 158 MG/DL (70-104); POTASSIUM 3.3 MMOL/L (3.5-5.1); SODIUM 132 MMOL/L (135-145); TOTAL CARBON DIOXIDE 26.7 MMOL/L (24-32); eGFR 21 ML/MIN
[2018-04-26 22:21] LABS: ANION GAP 11 (8-16); BLOOD UREA NITROGEN 92 MG/DL (7-18); BUN/CREATININE RATIO 42.8 (6.6-38.0); CALCIUM 8.3 MG/DL (8.5-10.1); CHLORIDE 92 MMOL/L (99-107); CREATININE 2.15 MG/DL (0.40-0.90); GLUCOSE 183 MG/DL (70-104); POTASSIUM 3.2 MMOL/L (3.5-5.1); SODIUM 131 MMOL/L (135-145); TOTAL CARBON DIOXIDE 27.7 MMOL/L (24-32); eGFR 22 ML/MIN
[2018-04-27] VITALS (14 sets, daily range): BP systolic 83–127; BP diastolic 37–68
[2018-04-27] MEDS: furosemide inj 100 ML IV SCH (00:28)
[2018-04-27] MEDS: HYDROcodone/acetaminophen 10/325mg tab PO PRN ×4 (00:34→22:01)
[2018-04-27] MEDS: potassium Cl 20 mEq SR tablet PO PRN ×3 (01:05→23:38)
[2018-04-27] MEDS: hydrALAZINE 20mg/ml inj. IV SCH ×2 (02:00→07:34)
[2018-04-27 06:05] LABS: ALANINE AMINOTRANSFERASE 20 U/L (12-78); ALBUMIN 2.1 G/DL (3.4-5.0); ALBUMIN/GLOBULIN RATIO 0.6 (1.1-1.5); ALKALINE PHOSPHATASE 69 IU/L (46-116); ANION GAP 9 (8-16); ASPARTATE AMINO TRANSFERASE 15 U/L (10-37); BILIRUBIN,TOTAL 0.7 MG/DL (0.1-1.0); BLOOD UREA NITROGEN 88 MG/DL (7-18); BUN/CREATININE RATIO 44.2 (6.6-38.0); CALCIUM 8.4 MG/DL (8.5-10.1); CHLORIDE 93 MMOL/L (99-107); CREATININE 1.99 MG/DL (0.40-0.90); GLUCOSE 138 MG/DL (70-104); MAGNESIUM 1.8 MG/DL (1.5-2.4); POTASSIUM 3.8 MMOL/L (3.5-5.1); SODIUM 131 MMOL/L (135-145); TOTAL CARBON DIOXIDE 28.9 MMOL/L (24-32); TOTAL PROTEIN 5.4 G/DL (6.4-8.2); eGFR 24 ML/MIN
[2018-04-27] MEDS: cefepime 1GM/NS ADD-VANTAGE 100 ML IV SCH (07:35)
[2018-04-27] MEDS: ondansetron/PF 4mg/2ml inj IV PRN (07:36)
[2018-04-27] MEDS: carVEDilol 12.5mg tablet PO SCH ×2 (07:40→08:31)
[2018-04-27] MEDS: cloNIDine 0.1 mg tablet PO SCH (07:40)
[2018-04-27] MEDS: heparin, porcine 5000 units/ml vial SQ SCH ×2 (07:41→20:00)
[2018-04-27] MEDS: lactobacillus rhamnosus 10,000 MMU CELLS/CAPSULE PO SCH ×2 (07:41→19:22)
[2018-04-27] MEDS: K and/or MAG REPLACEMENT MC SCH (08:00)
[2018-04-27] MEDS: NUT.TX.IMPAIRED DIGEST FXN (Ensure Clear) 237 ML PO SCH ×3 (08:01→17:28)
[2018-04-27 09:16] LABS: ALBUMIN 2.1 G/DL (3.4-5.0); ANION GAP 9 (8-16); BLOOD UREA NITROGEN 90 MG/DL (7-18); BUN/CREATININE RATIO 48.1 (6.6-38.0); CALCIUM 8.6 MG/DL (8.5-10.1); CHLORIDE 93 MMOL/L (99-107); CREATININE 1.87 MG/DL (0.40-0.90); GLUCOSE 158 MG/DL (70-104); POTASSIUM 3.5 MMOL/L (3.5-5.1); SODIUM 132 MMOL/L (135-145); TOTAL CARBON DIOXIDE 30.4 MMOL/L (24-32); eGFR 26 ML/MIN
[2018-04-27 16:09] LABS: ANION GAP 10 (8-16); BLOOD UREA NITROGEN 91 MG/DL (7-18); CALCIUM 8.5 MG/DL (8.5-10.1); CHLORIDE 94 MMOL/L (99-107); CREATININE 2.02 MG/DL (0.40-0.90); GLUCOSE 201 MG/DL (70-104); POTASSIUM 3.4 MMOL/L (3.5-5.1); SODIUM 133 MMOL/L (135-145); TOTAL CARBON DIOXIDE 28.9 MMOL/L (24-32); eGFR 24 ML/MIN
[2018-04-27] MEDS ORDERED: mag hydrox/Alum hydrox/simeth 30ml oral suspension PO PRN (16:50)
[2018-04-27] MEDS: acetaminophen 325mg tablet PO PRN (19:25)
[2018-04-27] MEDS: normal saline 1000ml 1,000 ML IV SCH (23:37)
[2018-04-28] VITALS (7 sets, daily range): BP systolic 111–154; BP diastolic 42–64
[2018-04-28 04:56] LABS: ALANINE AMINOTRANSFERASE 15 U/L (12-78); ALBUMIN/GLOBULIN RATIO 0.6 (1.1-1.5); ALKALINE PHOSPHATASE 61 IU/L (46-116); ANION GAP 9 (8-16); ASPARTATE AMINO TRANSFERASE 11 U/L (10-37); BILIRUBIN,TOTAL 0.6 MG/DL (0.1-1.0); BLOOD UREA NITROGEN 91 MG/DL (7-18); BUN/CREATININE RATIO 45.5 (6.6-38.0); CALCIUM 9.1 MG/DL (8.5-10.1); CHLORIDE 94 MMOL/L (99-107); GLUCOSE 143 MG/DL (70-104); POTASSIUM 3.6 MMOL/L (3.5-5.1); SODIUM 134 MMOL/L (135-145); TOTAL CARBON DIOXIDE 30.8 MMOL/L (24-32); TOTAL PROTEIN 5.2 G/DL (6.4-8.2); eGFR 24 ML/MIN
[2018-04-28 07:26] LABS: BASOPHILS % (AUTO) 0.1 % (0-1); EOSINOPHILS # (AUTO) 0.5 X10'3 (0-0.9); EOSINOPHILS % (AUTO) 4.6 % (0-6); HEMOGLOBIN 11.8 g/dl (12.0-16.0); LYMPHOCYTES # (AUTO) 0.7 X10'3 (1.1-4.8); LYMPHOCYTES % (AUTO) 5.8 % (21-51); MEAN CORPUSCULAR HEMOGLOBIN 29.1 PG (27.0-31.0); MEAN CORPUSCULAR HGB CONC 32.8 % (33.0-36.5); MEAN CORPUSCULAR VOLUME 88.6 FL (78-98); MEAN PLATELET VOLUME 7.7 FL (7.4-10.4); MONOCYTES # (AUTO) 1.5 X10'3 (0-0.9); MONOCYTES % (AUTO) 12.6 % (2-12); NEUTROPHILS # (AUTO) 9.2 X10'3 (1.8-7.7); NEUTROPHILS % (AUTO) 76.9 % (42-75); PLATELET COUNT 317 X10'3 (140-440); RED BLOOD COUNT 4.06 X10'6 (4.20-5.60); RED CELL DISTRIBUTION WIDTH 14.4 % (11.5-14.5); WHITE BLOOD COUNT 11.9 X10'3 (4.5-11.0)
[2018-04-28] MEDS: heparin, porcine 5000 units/ml vial SQ SCH ×2 (08:00→20:32)
[2018-04-28] MEDS: NUT.TX.IMPAIRED DIGEST FXN (Ensure Clear) 237 ML PO SCH ×3 (08:00→17:35)
[2018-04-28] MEDS: lactobacillus rhamnosus 10,000 MMU CELLS/CAPSULE PO SCH ×2 (08:00→20:34)
[2018-04-28] MEDS: HYDROcodone/acetaminophen 10/325mg tab PO PRN ×3 (08:09→20:34)
[2018-04-28] MEDS: cefepime 1GM/NS ADD-VANTAGE 100 ML IV SCH (08:16)
[2018-04-28] MEDS: K and/or MAG REPLACEMENT MC SCH (08:32)
[2018-04-28 08:42] LABS: INR 1.1 INR; PROTHROMBIN TIME 11.6 SECONDS (9.0-12.0)
[2018-04-28] MEDS: normal saline 1000ml 1,000 ML IV SCH (20:29)
[2018-04-28] MEDS: furosemide 20 MG/2 ML vial IV SCH (20:33)
[2018-04-29] VITALS: BP 136/58
[2018-04-29] MEDS: HYDROcodone/acetaminophen 10/325mg tab PO PRN ×4 (04:38→23:10)
[2018-04-29 06:13] LABS: ALANINE AMINOTRANSFERASE 16 U/L (12-78); ALBUMIN 2.1 G/DL (3.4-5.0); ALBUMIN/GLOBULIN RATIO 0.6 (1.1-1.5); ALKALINE PHOSPHATASE 63 IU/L (46-116); ANION GAP 8 (8-16); ASPARTATE AMINO TRANSFERASE 13 U/L (10-37); BILIRUBIN,TOTAL 0.6 MG/DL (0.1-1.0); BLOOD UREA NITROGEN 90 MG/DL (7-18); BUN/CREATININE RATIO 47.9 (6.6-38.0); CALCIUM 8.6 MG/DL (8.5-10.1); CHLORIDE 95 MMOL/L (99-107); CREATININE 1.88 MG/DL (0.40-0.90); GLUCOSE 150 MG/DL (70-104); MAGNESIUM 1.7 MG/DL (1.5-2.4); POTASSIUM 3.7 MMOL/L (3.5-5.1); SODIUM 136 MMOL/L (135-145); TOTAL CARBON DIOXIDE 33.3 MMOL/L (24-32); TOTAL PROTEIN 5.5 G/DL (6.4-8.2); eGFR 26 ML/MIN
[2018-04-29 08:00] VITALS: BP 149/52
[2018-04-29] MEDS: NUT.TX.IMPAIRED DIGEST FXN (Ensure Clear) 237 ML PO SCH ×3 (08:00→18:02)
[2018-04-29] MEDS: K and/or MAG REPLACEMENT MC SCH (08:00)
[2018-04-29] MEDS: cefepime 1GM/NS ADD-VANTAGE 100 ML IV SCH (08:12)
[2018-04-29] MEDS: lactobacillus rhamnosus 10,000 MMU CELLS/CAPSULE PO SCH ×2 (08:13→20:11)
[2018-04-29] MEDS: carvedilol 6.25mg tablet PO SCH ×2 (08:13→20:11)
[2018-04-29] MEDS: heparin, porcine 5000 units/ml vial SQ SCH ×2 (08:14→20:11)
[2018-04-29] MEDS: furosemide 20 MG/2 ML vial IV SCH ×2 (10:24→20:10)
[2018-04-29] MEDS: amiodarone 200mg tablet PO SCH ×2 (10:25→20:12)
[2018-04-29 11:00] VITALS: BP 135/42
[2018-04-29 11:04] LABS: HEMOGLOBIN 11.2 g/dl (12.0-16.0); MEAN CORPUSCULAR HEMOGLOBIN 30.3 PG (27.0-31.0); MEAN CORPUSCULAR HGB CONC 33.8 % (33.0-36.5); MEAN CORPUSCULAR VOLUME 89.6 FL (78-98); PLATELET COUNT 287 X10'3 (140-440); RED BLOOD COUNT 3.68 X10'6 (4.20-5.60); RED CELL DISTRIBUTION WIDTH 13.9 % (11.5-14.5); WHITE BLOOD COUNT 12.9 X10'3 (4.5-11.0)
[2018-04-29 11:05] LABS: BASOPHILS % (AUTO) 0.2 % (0-1); EOSINOPHILS # (AUTO) 0.4 X10'3 (0-0.9); EOSINOPHILS % (AUTO) 3.2 % (0-6); LYMPHOCYTES # (AUTO) 0.5 X10'3 (1.1-4.8); LYMPHOCYTES % (AUTO) 3.6 % (21-51); MEAN PLATELET VOLUME 7.7 FL (7.4-10.4); MONOCYTES % (AUTO) 7.4 % (2-12); NEUTROPHILS % (AUTO) 85.6 % (42-75)
[2018-04-29 18:00] VITALS: BP 154/50
[2018-04-29 20:07] LABS: CLARITY,URINE CLEAR (Clear); COLOR,URINE YELLOW (Yellow); GLUCOSE, URINE NEGATIVE (Neg); KETONES,URINE NEGATIVE (Neg); LEUKOCYTE ESTERASE ,URINE NEGATIVE (Neg); NITRITES, URINE NEGATIVE (Neg); OCCULT BLOOD,URINE MODERATE (Neg); PROTEIN,URINE NEGATIVE (Neg); UROBILINOGEN,URINE 0.2 E.U/dL (0.2-1.0)
[2018-04-29 20:19] LABS: UA COLLECTION TYPE FOLEY CATH
[2018-04-29 20:20] LABS: BACTERIA,URINE FEW /HPF (Neg); MUCUS STRANDS FEW /LPF (Neg); RBC,URINE 20-50 /HPF (0-2); SQUAMOUS EPITHELIAL CELL,UR MODERATE /LPF (FEW); WBC,URINE 0-4 /HPF (0-4)
[2018-04-29 22:00] VITALS: BP 150/59
[2018-04-30 02:00] VITALS: BP 122/44
[2018-04-30 06:00] VITALS: BP 101/50
[2018-04-30] MEDS: HYDROcodone/acetaminophen 10/325mg tab PO PRN ×3 (06:20→19:23)
[2018-04-30 06:21] LABS: BASOPHILS % (AUTO) 0.1 % (0-1); EOSINOPHILS # (AUTO) 0.3 X10'3 (0-0.9); HEMOGLOBIN 11.6 g/dl (12.0-16.0); LYMPHOCYTES # (AUTO) 0.6 X10'3 (1.1-4.8); LYMPHOCYTES % (AUTO) 5.7 % (21-51); MEAN CORPUSCULAR HEMOGLOBIN 30.9 PG (27.0-31.0); MEAN CORPUSCULAR HGB CONC 35.1 % (33.0-36.5); MEAN CORPUSCULAR VOLUME 87.9 FL (78-98); MEAN PLATELET VOLUME 7.7 FL (7.4-10.4); MONOCYTES # (AUTO) 0.8 X10'3 (0-0.9); MONOCYTES % (AUTO) 6.9 % (2-12); NEUTROPHILS # (AUTO) 9.6 X10'3 (1.8-7.7); NEUTROPHILS % (AUTO) 84.3 % (42-75); PLATELET COUNT 275 X10'3 (140-440); RED BLOOD COUNT 3.75 X10'6 (4.20-5.60); RED CELL DISTRIBUTION WIDTH 13.6 % (11.5-14.5); WHITE BLOOD COUNT 11.3 X10'3 (4.5-11.0)
[2018-04-30 06:40] LABS: ALANINE AMINOTRANSFERASE 15 U/L (12-78); ALBUMIN 2.1 G/DL (3.4-5.0); ALBUMIN/GLOBULIN RATIO 0.6 (1.1-1.5); ALKALINE PHOSPHATASE 63 IU/L (46-116); ANION GAP 4 (8-16); ASPARTATE AMINO TRANSFERASE 13 U/L (10-37); BILIRUBIN,TOTAL 0.5 MG/DL (0.1-1.0); BLOOD UREA NITROGEN 88 MG/DL (7-18); BUN/CREATININE RATIO 57.9 (6.6-38.0); CALCIUM 8.8 MG/DL (8.5-10.1); CHLORIDE 95 MMOL/L (99-107); CREATININE 1.52 MG/DL (0.40-0.90); GLUCOSE 129 MG/DL (70-104); MAGNESIUM 1.7 MG/DL (1.5-2.4); POTASSIUM 3.8 MMOL/L (3.5-5.1); SODIUM 134 MMOL/L (135-145); TOTAL CARBON DIOXIDE 34.6 MMOL/L (24-32); TOTAL PROTEIN 5.5 G/DL (6.4-8.2); eGFR 33 ML/MIN
[2018-04-30] MEDS: amiodarone 200mg tablet PO SCH ×2 (07:45→19:22)
[2018-04-30] MEDS: lactobacillus rhamnosus 10,000 MMU CELLS/CAPSULE PO SCH ×2 (07:46→19:22)
[2018-04-30] MEDS: carVEDilol 12.5mg tablet PO SCH ×2 (07:46→19:22)
[2018-04-30] MEDS: heparin, porcine 5000 units/ml vial SQ SCH (07:48)
[2018-04-30] MEDS: furosemide 20 MG/2 ML vial IV SCH (07:48)
[2018-04-30] MEDS: cefepime 1GM/NS ADD-VANTAGE 100 ML IV SCH (07:50)
[2018-04-30] MEDS: NUT.TX.IMPAIRED DIGEST FXN (Ensure Clear) 237 ML PO SCH ×3 (07:54→17:35)
[2018-04-30 11:00] VITALS: BP 133/49
[2018-04-30 15:00] VITALS: BP 133/49
[2018-04-30] MEDS: mag hydrox/Alum hydrox/simeth 30ml oral suspension PO PRN (16:55)
[2018-04-30 19:00] VITALS: BP 146/50
[2018-04-30] MEDS: apixaban 5mg tablet PO SCH (19:21)
[2018-04-30] MEDS: furosemide 40mg/4ml inj IV SCH (19:22)
[2018-04-30 23:00] VITALS: BP 133/42
[2018-05-01] MEDS: HYDROcodone/acetaminophen 10/325mg tab PO PRN ×4 (01:21→20:55)
[2018-05-01 03:00] VITALS: BP 137/46
[2018-05-01 06:45] LABS: BASOPHILS % (AUTO) 0.1 % (0-1); EOSINOPHILS # (AUTO) 0.2 X10'3 (0-0.9); HEMATOCRIT 30.6 % (35.0-45.0); HEMOGLOBIN 10.6 g/dl (12.0-16.0); LYMPHOCYTES # (AUTO) 0.6 X10'3 (1.1-4.8); LYMPHOCYTES % (AUTO) 5.7 % (21-51); MEAN CORPUSCULAR HEMOGLOBIN 30.4 PG (27.0-31.0); MEAN CORPUSCULAR HGB CONC 34.7 % (33.0-36.5); MEAN CORPUSCULAR VOLUME 87.8 FL (78-98); MONOCYTES # (AUTO) 0.8 X10'3 (0-0.9); NEUTROPHILS # (AUTO) 9.6 X10'3 (1.8-7.7); NEUTROPHILS % (AUTO) 85.2 % (42-75); PLATELET COUNT 242 X10'3 (140-440); RED BLOOD COUNT 3.48 X10'6 (4.20-5.60); RED CELL DISTRIBUTION WIDTH 13.3 % (11.5-14.5); WHITE BLOOD COUNT 11.2 X10'3 (4.5-11.0)
[2018-05-01 07:00] VITALS: BP 134/44
[2018-05-01 07:01] LABS: ALANINE AMINOTRANSFERASE 17 U/L (12-78); ALBUMIN/GLOBULIN RATIO 0.6 (1.1-1.5); ALKALINE PHOSPHATASE 65 IU/L (46-116); ANION GAP 5 (8-16); ASPARTATE AMINO TRANSFERASE 17 U/L (10-37); BILIRUBIN,TOTAL 0.5 MG/DL (0.1-1.0); BLOOD UREA NITROGEN 91 MG/DL (7-18); BUN/CREATININE RATIO 59.5 (6.6-38.0); CALCIUM 9.3 MG/DL (8.5-10.1); CHLORIDE 93 MMOL/L (99-107); CREATININE 1.53 MG/DL (0.40-0.90); GLUCOSE 138 MG/DL (70-104); MAGNESIUM 1.8 MG/DL (1.5-2.4); POTASSIUM 3.9 MMOL/L (3.5-5.1); SODIUM 134 MMOL/L (135-145); TOTAL CARBON DIOXIDE 36.1 MMOL/L (24-32); TOTAL PROTEIN 5.4 G/DL (6.4-8.2); eGFR 33 ML/MIN
[2018-05-01] MEDS: NUT.TX.IMPAIRED DIGEST FXN (Ensure Clear) 237 ML PO SCH ×3 (08:00→18:40)
[2018-05-01] MEDS: apixaban 5mg tablet PO SCH ×2 (08:08→20:25)
[2018-05-01] MEDS: lactobacillus rhamnosus 10,000 MMU CELLS/CAPSULE PO SCH ×2 (08:08→20:25)
[2018-05-01] MEDS: carVEDilol 12.5mg tablet PO SCH ×2 (08:09→20:25)
[2018-05-01] MEDS: amiodarone 200mg tablet PO SCH ×2 (08:09→20:25)
[2018-05-01] MEDS: cefepime 1GM/NS ADD-VANTAGE 100 ML IV SCH (08:13)
[2018-05-01] MEDS: furosemide 40mg/4ml inj IV SCH ×2 (08:13→20:25)
[2018-05-01 11:00] VITALS: BP 141/43
[2018-05-01 15:00] VITALS: BP 151/45
[2018-05-01 19:00] VITALS: BP 154/51
[2018-05-01] MEDS: mag hydrox/Alum hydrox/simeth 30ml oral suspension PO PRN (22:18)
[2018-05-01 23:00] VITALS: BP 146/47
[2018-05-02 03:00] VITALS: BP 145/46
[2018-05-02] MEDS: HYDROcodone/acetaminophen 10/325mg tab PO PRN ×4 (03:08→21:40)
[2018-05-02 07:00] VITALS: BP_SYST 144; BP_SYST 146; BP_DIAS 103; BP_DIAS 48
[2018-05-02] MEDS: NUT.TX.IMPAIRED DIGEST FXN (Ensure Clear) 237 ML PO SCH ×3 (08:00→18:00)
[2018-05-02] MEDS: apixaban 5mg tablet PO SCH ×2 (09:21→20:30)
[2018-05-02] MEDS: furosemide 40mg/4ml inj IV SCH ×2 (09:21→20:29)
[2018-05-02] MEDS: lactobacillus rhamnosus 10,000 MMU CELLS/CAPSULE PO SCH ×2 (09:21→20:31)
[2018-05-02] MEDS: carVEDilol 12.5mg tablet PO SCH ×2 (09:21→20:31)
[2018-05-02] MEDS: amiodarone 200mg tablet PO SCH ×2 (09:21→20:30)
[2018-05-02] MEDS: cefepime 1GM/NS ADD-VANTAGE 100 ML IV SCH (09:22)
[2018-05-02 10:41] LABS: BASOPHILS % (AUTO) 0 % (0-1); EOSINOPHILS # (AUTO) 0.2 X10'3 (0-0.9); HEMATOCRIT 31.5 % (35.0-45.0); HEMOGLOBIN 10.8 g/dl (12.0-16.0); LYMPHOCYTES # (AUTO) 0.5 X10'3 (1.1-4.8); LYMPHOCYTES % (AUTO) 6.1 % (21-51); MEAN CORPUSCULAR HEMOGLOBIN 30.5 PG (27.0-31.0); MEAN CORPUSCULAR HGB CONC 34.4 % (33.0-36.5); MEAN CORPUSCULAR VOLUME 88.7 FL (78-98); MEAN PLATELET VOLUME 8.2 FL (7.4-10.4); MONOCYTES # (AUTO) 0.6 X10'3 (0-0.9); MONOCYTES % (AUTO) 6.7 % (2-12); NEUTROPHILS # (AUTO) 7.5 X10'3 (1.8-7.7); NEUTROPHILS % (AUTO) 85.2 % (42-75); PLATELET COUNT 235 X10'3 (140-440); RED BLOOD COUNT 3.55 X10'6 (4.20-5.60); RED CELL DISTRIBUTION WIDTH 13.4 % (11.5-14.5); WHITE BLOOD COUNT 8.8 X10'3 (4.5-11.0)
[2018-05-02 10:44] LABS: ALANINE AMINOTRANSFERASE 18 U/L (12-78); ALBUMIN/GLOBULIN RATIO 0.6 (1.1-1.5); ALKALINE PHOSPHATASE 71 IU/L (46-116); ANION GAP 2 (8-16); ASPARTATE AMINO TRANSFERASE 20 U/L (10-37); BILIRUBIN,TOTAL 0.5 MG/DL (0.1-1.0); BLOOD UREA NITROGEN 86 MG/DL (7-18); BUN/CREATININE RATIO 60.6 (6.6-38.0); CALCIUM 9.1 MG/DL (8.5-10.1); CHLORIDE 91 MMOL/L (99-107); CREATININE 1.42 MG/DL (0.40-0.90); GLUCOSE 186 MG/DL (70-104); POTASSIUM 3.9 MMOL/L (3.5-5.1); SODIUM 134 MMOL/L (135-145); TOTAL PROTEIN 5.5 G/DL (6.4-8.2); eGFR 36 ML/MIN
[2018-05-02 10:46] LABS: TOTAL CARBON DIOXIDE 40.7 MMOL/L (24-32)
[2018-05-02 11:00] VITALS: BP 127/42
[2018-05-02 11:55] LABS: ABG BASE EXCESS 14.5 mmol/L (-2.0-3.0); ABG HCO3 42.9 mmol/L (22.0-26.0); ABG OXYGEN SATURATION 96.8 % (95-98); ABG PCO2 (T) 75.9 mmHg (32.0-45.0); ALLEN'S TEST Positive; FCOHb 0.2 % (0.5-1.5); FLOW 2 L/min; FMetHb 0.2 % (0.3-1.12); FO2Hb 96.4 % (94-100); TOTAL HEMOGLOBIN 11.6 G/dl (12.0-16.0)
[2018-05-02 15:00] VITALS: BP 153/49
[2018-05-02 19:00] VITALS: BP 156/47
[2018-05-02] MEDS: mag hydrox/Alum hydrox/simeth 30ml oral suspension PO PRN (21:44)
[2018-05-02 23:00] VITALS: BP 144/49
[2018-05-03 03:00] VITALS: BP 134/42
[2018-05-03] MEDS: HYDROcodone/acetaminophen 10/325mg tab PO PRN ×4 (03:49→22:10)
[2018-05-03] MEDS: mag hydrox/Alum hydrox/simeth 30ml oral suspension PO PRN ×3 (04:36→15:58)
[2018-05-03 05:31] LABS: ALANINE AMINOTRANSFERASE 19 U/L (12-78); ALBUMIN 2.1 G/DL (3.4-5.0); ALBUMIN/GLOBULIN RATIO 0.6 (1.1-1.5); ALKALINE PHOSPHATASE 69 IU/L (46-116); ANION GAP 3 (8-16); ASPARTATE AMINO TRANSFERASE 17 U/L (10-37); BILIRUBIN,TOTAL 0.5 MG/DL (0.1-1.0); BLOOD UREA NITROGEN 91 MG/DL (7-18); BUN/CREATININE RATIO 71.7 (6.6-38.0); CALCIUM 8.9 MG/DL (8.5-10.1); CHLORIDE 91 MMOL/L (99-107); CREATININE 1.27 MG/DL (0.40-0.90); GLUCOSE 139 MG/DL (70-104); POTASSIUM 3.9 MMOL/L (3.5-5.1); SODIUM 134 MMOL/L (135-145); TOTAL PROTEIN 5.5 G/DL (6.4-8.2); TROPONIN I < 0.04 NG/ML (0.0-0.05); eGFR 41 ML/MIN
[2018-05-03 05:34] LABS: TOTAL CARBON DIOXIDE 40.2 MMOL/L (24-32)
[2018-05-03 05:41] LABS: BASOPHILS % (AUTO) 0 % (0-1); EOSINOPHILS # (AUTO) 0.2 X10'3 (0-0.9); EOSINOPHILS % (AUTO) 2.4 % (0-6); HEMATOCRIT 30.6 % (35.0-45.0); HEMOGLOBIN 10.7 g/dl (12.0-16.0); LYMPHOCYTES # (AUTO) 0.5 X10'3 (1.1-4.8); LYMPHOCYTES % (AUTO) 5.5 % (21-51); MEAN CORPUSCULAR HEMOGLOBIN 30.8 PG (27.0-31.0); MEAN CORPUSCULAR HGB CONC 34.9 % (33.0-36.5); MEAN CORPUSCULAR VOLUME 88.2 FL (78-98); MEAN PLATELET VOLUME 7.7 FL (7.4-10.4); MONOCYTES # (AUTO) 0.7 X10'3 (0-0.9); MONOCYTES % (AUTO) 8.2 % (2-12); NEUTROPHILS # (AUTO) 7.3 X10'3 (1.8-7.7); NEUTROPHILS % (AUTO) 83.9 % (42-75); PLATELET COUNT 266 X10'3 (140-440); RED BLOOD COUNT 3.47 X10'6 (4.20-5.60); WHITE BLOOD COUNT 8.7 X10'3 (4.5-11.0)
[2018-05-03 06:00] VITALS: BP 139/51
[2018-05-03] MEDS: cefepime 1GM/NS ADD-VANTAGE 100 ML IV SCH (07:20)
[2018-05-03] MEDS: furosemide 40mg/4ml inj IV SCH ×2 (07:22→20:40)
[2018-05-03] MEDS: amiodarone 200mg tablet PO SCH ×2 (07:22→20:40)
[2018-05-03] MEDS: carVEDilol 12.5mg tablet PO SCH ×2 (07:22→20:41)
[2018-05-03] MEDS: lactobacillus rhamnosus 10,000 MMU CELLS/CAPSULE PO SCH ×2 (07:22→20:40)
[2018-05-03] MEDS: apixaban 5mg tablet PO SCH ×2 (07:22→20:41)
[2018-05-03] MEDS: lactose-reduced food (Ensure Enlive) - 237ml bottle PO SCH (07:43)
[2018-05-03] MEDS: NUT.TX.IMPAIRED DIGEST FXN (Ensure Clear) 237 ML PO SCH ×4 (08:00→18:00)
[2018-05-03 09:45] LABS: ABG HCO3 44.2 mmol/L (22.0-26.0); ABG OXYGEN SATURATION 96.4 % (95-98); ABG PCO2 (T) 75.5 mmHg (32.0-45.0); ABG PH (T) 7.385 (7.350-7.450); ABG PO2 (T) 88.2 mmHg (83-108); ALLEN'S TEST Positive; FCOHb 0.2 % (0.5-1.5); FLOW 2 L/min; FMetHb 0.2 % (0.3-1.12); TOTAL HEMOGLOBIN 11.4 G/dl (12.0-16.0)
[2018-05-03 11:00] VITALS: BP 109/45
[2018-05-03] MEDS: methylPREDNISolone sod succ/PF 40mg inj. IV SCH ×2 (14:35→20:40)
[2018-05-03 15:29] VITALS: BP 138/44
[2018-05-03 19:00] VITALS: BP 145/54
[2018-05-03 23:00] VITALS: BP 141/44
[2018-05-04] VITALS (7 sets, daily range): BP systolic 123–184; BP diastolic 48–77
[2018-05-04] MEDS: methylPREDNISolone sod succ/PF 40mg inj. IV SCH ×4 (02:25→19:59)
[2018-05-04 05:23] LABS: BASOPHILS % (AUTO) 0 % (0-1); EOSINOPHILS % (AUTO) 0 % (0-6); HEMOGLOBIN 11.1 g/dl (12.0-16.0); LYMPHOCYTES # (AUTO) 0.2 X10'3 (1.1-4.8); LYMPHOCYTES % (AUTO) 3.4 % (21-51); MEAN CORPUSCULAR HEMOGLOBIN 29.5 PG (27.0-31.0); MEAN CORPUSCULAR HGB CONC 33.7 % (33.0-36.5); MEAN CORPUSCULAR VOLUME 87.7 FL (78-98); MEAN PLATELET VOLUME 8.1 FL (7.4-10.4); MONOCYTES % (AUTO) 0.8 % (2-12); NEUTROPHILS # (AUTO) 5.5 X10'3 (1.8-7.7); NEUTROPHILS % (AUTO) 95.8 % (42-75); PLATELET COUNT 265 X10'3 (140-440); RED BLOOD COUNT 3.77 X10'6 (4.20-5.60); RED CELL DISTRIBUTION WIDTH 12.9 % (11.5-14.5); WHITE BLOOD COUNT 5.7 X10'3 (4.5-11.0)
[2018-05-04] MEDS: NUT.TX.IMPAIRED DIGEST FXN (Ensure Clear) 237 ML PO SCH ×5 (07:30→18:52)
[2018-05-04] MEDS: amiodarone 200mg tablet PO SCH ×2 (07:57→20:00)
[2018-05-04] MEDS: carVEDilol 12.5mg tablet PO SCH ×3 (07:57→20:00)
[2018-05-04] MEDS: furosemide 40mg/4ml inj IV SCH ×2 (07:57→20:00)
[2018-05-04] MEDS: lactobacillus rhamnosus 10,000 MMU CELLS/CAPSULE PO SCH ×2 (07:57→20:00)
[2018-05-04] MEDS: apixaban 5mg tablet PO SCH (07:57)
[2018-05-04] MEDS: mag hydrox/Alum hydrox/simeth 30ml oral suspension PO PRN (07:59)
[2018-05-04] MEDS: HYDROcodone/acetaminophen 10/325mg tab PO PRN ×3 (07:59→23:48)
[2018-05-04 09:35] LABS: ALANINE AMINOTRANSFERASE 21 U/L (12-78); ALBUMIN 2.4 G/DL (3.4-5.0); ALBUMIN/GLOBULIN RATIO 0.6 (1.1-1.5); ALKALINE PHOSPHATASE 81 IU/L (46-116); ANION GAP 2 (8-16); ASPARTATE AMINO TRANSFERASE 14 U/L (10-37); BILIRUBIN,TOTAL 0.6 MG/DL (0.1-1.0); BLOOD UREA NITROGEN 89 MG/DL (7-18); BUN/CREATININE RATIO 70.6 (6.6-38.0); CALCIUM 9.1 MG/DL (8.5-10.1); CHLORIDE 88 MMOL/L (99-107); CREATININE 1.26 MG/DL (0.40-0.90); GLUCOSE 341 MG/DL (70-104); SODIUM 132 MMOL/L (135-145); TOTAL PROTEIN 6.1 G/DL (6.4-8.2); eGFR 41 ML/MIN
[2018-05-04 10:03] LABS: TOTAL CARBON DIOXIDE 41.8 MMOL/L (24-32)
[2018-05-04 12:58] LABS: BASOPHILS % (AUTO) 0.2 % (0-1); EOSINOPHILS % (AUTO) 0 % (0-6); HEMATOCRIT 33.6 % (35.0-45.0); HEMOGLOBIN 11.3 g/dl (12.0-16.0); LYMPHOCYTES # (AUTO) 0.2 X10'3 (1.1-4.8); LYMPHOCYTES % (AUTO) 2.7 % (21-51); MEAN CORPUSCULAR HEMOGLOBIN 29.4 PG (27.0-31.0); MEAN CORPUSCULAR HGB CONC 33.6 % (33.0-36.5); MEAN CORPUSCULAR VOLUME 87.7 FL (78-98); MEAN PLATELET VOLUME 8.1 FL (7.4-10.4); MONOCYTES # (AUTO) 0.1 X10'3 (0-0.9); MONOCYTES % (AUTO) 1.4 % (2-12); NEUTROPHILS # (AUTO) 6.9 X10'3 (1.8-7.7); NEUTROPHILS % (AUTO) 95.7 % (42-75); PLATELET COUNT 279 X10'3 (140-440); RED BLOOD COUNT 3.83 X10'6 (4.20-5.60); RED CELL DISTRIBUTION WIDTH 13.1 % (11.5-14.5); WHITE BLOOD COUNT 7.2 X10'3 (4.5-11.0)
[2018-05-04 13:26] LABS: INR 1.1 INR; PARTIAL THROMBOPLASTIN TIME 34 SECONDS (22-32); PROTHROMBIN TIME 11.4 SECONDS (9.0-12.0)
[2018-05-04] MEDS: lactose-reduced food (Ensure Enlive) - 237ml bottle PO SCH (17:00)
[2018-05-04] MEDS: lisinopril 10 MG tablet PO SCH (17:31)
[2018-05-04] MEDS: LORazepam 2 mg/ml vial IV PRN (23:41)
[2018-05-05] MEDS: methylPREDNISolone sod succ/PF 40mg inj. IV SCH ×4 (02:06→20:34)
[2018-05-05 02:47] LABS: BASOPHILS % (AUTO) 0.1 % (0-1); EOSINOPHILS % (AUTO) 0.1 % (0-6); HEMATOCRIT 32.7 % (35.0-45.0); LYMPHOCYTES # (AUTO) 0.3 X10'3 (1.1-4.8); MEAN CORPUSCULAR HEMOGLOBIN 29.4 PG (27.0-31.0); MEAN CORPUSCULAR HGB CONC 33.6 % (33.0-36.5); MEAN CORPUSCULAR VOLUME 87.5 FL (78-98); MEAN PLATELET VOLUME 8.3 FL (7.4-10.4); MONOCYTES # (AUTO) 0.1 X10'3 (0-0.9); MONOCYTES % (AUTO) 1.1 % (2-12); NEUTROPHILS % (AUTO) 95.7 % (42-75); PLATELET COUNT 268 X10'3 (140-440); RED BLOOD COUNT 3.74 X10'6 (4.20-5.60); RED CELL DISTRIBUTION WIDTH 12.8 % (11.5-14.5); WHITE BLOOD COUNT 8.4 X10'3 (4.5-11.0)
[2018-05-05 03:00] VITALS: BP 173/62
[2018-05-05 06:00] VITALS: BP 181/57
[2018-05-05] MEDS: amiodarone 200mg tablet PO SCH ×2 (08:00→20:34)
[2018-05-05] MEDS: lactobacillus rhamnosus 10,000 MMU CELLS/CAPSULE PO SCH ×2 (08:00→20:34)
[2018-05-05] MEDS: carVEDilol 12.5mg tablet PO SCH ×2 (08:00→20:34)
[2018-05-05] MEDS: NUT.TX.IMPAIRED DIGEST FXN (Ensure Clear) 237 ML PO SCH ×3 (08:00→17:48)
[2018-05-05] MEDS: lisinopril 10 MG tablet PO SCH (08:00)
[2018-05-05] MEDS: furosemide 40mg/4ml inj IV SCH (08:00)
[2018-05-05 11:00] VITALS: BP 154/58
[2018-05-05 11:10] LABS: ALANINE AMINOTRANSFERASE 19 U/L (12-78); ALBUMIN 2.4 G/DL (3.4-5.0); ALBUMIN/GLOBULIN RATIO 0.7 (1.1-1.5); ALKALINE PHOSPHATASE 82 IU/L (46-116); ANION GAP 1 (8-16); ASPARTATE AMINO TRANSFERASE 12 U/L (10-37); BILIRUBIN,TOTAL 0.4 MG/DL (0.1-1.0); BLOOD UREA NITROGEN 88 MG/DL (7-18); BUN/CREATININE RATIO 60.3 (6.6-38.0); CHLORIDE 88 MMOL/L (99-107); CREATININE 1.46 MG/DL (0.40-0.90); GLUCOSE 425 MG/DL (70-104); SODIUM 130 MMOL/L (135-145); eGFR 35 ML/MIN
[2018-05-05 11:16] LABS: TOTAL CARBON DIOXIDE 41.3 MMOL/L (24-32)
[2018-05-05] MEDS: normal saline 1000ml 1,000 ML IV SCH (14:31)
[2018-05-05] MEDS: HYDROcodone/acetaminophen 10/325mg tab PO PRN ×2 (16:36→22:32)
[2018-05-05] MEDS: mag hydrox/Alum hydrox/simeth 30ml oral suspension PO PRN ×2 (16:36→22:34)
[2018-05-05] MEDS: lactose-reduced food (Ensure Enlive) - 237ml bottle PO SCH (17:00)
[2018-05-05 19:00] VITALS: BP 171/70
[2018-05-05] MEDS: LORazepam 2 mg/ml vial IV PRN (22:34)
[2018-05-05 23:00] VITALS: BP 186/68
[2018-05-06] MEDS: methylPREDNISolone sod succ/PF 40mg inj. IV SCH ×4 (02:00→21:54)
[2018-05-06 03:00] VITALS: BP 172/73
[2018-05-06 05:52] LABS: BASOPHILS % (AUTO) 0.1 % (0-1); EOSINOPHILS % (AUTO) 0.1 % (0-6); HEMOGLOBIN 11.5 g/dl (12.0-16.0); LYMPHOCYTES # (AUTO) 0.2 X10'3 (1.1-4.8); LYMPHOCYTES % (AUTO) 2.1 % (21-51); MEAN CORPUSCULAR HEMOGLOBIN 30.6 PG (27.0-31.0); MEAN CORPUSCULAR HGB CONC 34.9 % (33.0-36.5); MEAN CORPUSCULAR VOLUME 87.7 FL (78-98); MEAN PLATELET VOLUME 8.2 FL (7.4-10.4); MONOCYTES # (AUTO) 0.2 X10'3 (0-0.9); MONOCYTES % (AUTO) 1.9 % (2-12); NEUTROPHILS # (AUTO) 8.4 X10'3 (1.8-7.7); NEUTROPHILS % (AUTO) 95.8 % (42-75); PLATELET COUNT 269 X10'3 (140-440); RED BLOOD COUNT 3.77 X10'6 (4.20-5.60); RED CELL DISTRIBUTION WIDTH 13.1 % (11.5-14.5); WHITE BLOOD COUNT 8.8 X10'3 (4.5-11.0)
[2018-05-06 06:00] VITALS: BP 158/60
[2018-05-06] MEDS: carVEDilol 12.5mg tablet PO SCH ×2 (07:47→21:48)
[2018-05-06] MEDS: amiodarone 200mg tablet PO SCH ×2 (07:47→21:49)
[2018-05-06] MEDS: lactobacillus rhamnosus 10,000 MMU CELLS/CAPSULE PO SCH ×2 (07:48→21:49)
[2018-05-06] MEDS: lisinopril 10 MG tablet PO SCH (07:49)
[2018-05-06] MEDS: HYDROcodone/acetaminophen 10/325mg tab PO PRN ×2 (07:51→22:55)
[2018-05-06] MEDS: NUT.TX.IMPAIRED DIGEST FXN (Ensure Clear) 237 ML PO SCH ×3 (07:52→18:00)
[2018-05-06] MEDS: normal saline 1000ml 1,000 ML IV SCH ×2 (09:57→15:53)
[2018-05-06 11:00] VITALS: BP 158/50
[2018-05-06] MEDS: BUPIVAcaine/PF 2.5mg/ml (0.25%) 10ml vial ONE (14:14)
[2018-05-06] MEDS: ceFAZolin 1000mg inj ONE (14:14)
[2018-05-06] MEDS ORDERED: LIDOcaine 1% (10mg/ml) 2ml vial ONE (14:48)
[2018-05-06 15:00] VITALS: BP 163/62
[2018-05-06] MEDS: lactose-reduced food (Ensure Enlive) - 237ml bottle PO SCH (17:00)
[2018-05-06 18:00] VITALS: BP 121/43
[2018-05-06 22:00] VITALS: BP 148/67
[2018-05-07] VITALS (22 sets, daily range): BP systolic 54–173; BP diastolic 48–116
[2018-05-07] MEDS: LORazepam 2 mg/ml vial IV PRN (00:17)
[2018-05-07] MEDS: methylPREDNISolone sod succ/PF 40mg inj. IV SCH ×4 (04:10→19:28)
[2018-05-07 05:23] LABS: BASOPHILS % (AUTO) 0 % (0-1); EOSINOPHILS % (AUTO) 0 % (0-6); HEMATOCRIT 31.5 % (35.0-45.0); HEMOGLOBIN 10.9 g/dl (12.0-16.0); LYMPHOCYTES # (AUTO) 0.2 X10'3 (1.1-4.8); MEAN CORPUSCULAR HEMOGLOBIN 30.1 PG (27.0-31.0); MEAN CORPUSCULAR HGB CONC 34.4 % (33.0-36.5); MEAN CORPUSCULAR VOLUME 87.4 FL (78-98); MEAN PLATELET VOLUME 8.2 FL (7.4-10.4); MONOCYTES # (AUTO) 0.2 X10'3 (0-0.9); MONOCYTES % (AUTO) 1.9 % (2-12); NEUTROPHILS # (AUTO) 7.7 X10'3 (1.8-7.7); NEUTROPHILS % (AUTO) 96.1 % (42-75); PLATELET COUNT 289 X10'3 (140-440); RED BLOOD COUNT 3.61 X10'6 (4.20-5.60); RED CELL DISTRIBUTION WIDTH 13.1 % (11.5-14.5); WHITE BLOOD COUNT 8.1 X10'3 (4.5-11.0)
[2018-05-07] MEDS: NUT.TX.IMPAIRED DIGEST FXN (Ensure Clear) 237 ML PO SCH ×3 (07:21→18:00)
[2018-05-07] MEDS: lisinopril 10 MG tablet PO SCH (07:37)
[2018-05-07] MEDS: amiodarone 200mg tablet PO SCH ×3 (07:37→20:50)
[2018-05-07] MEDS: lactobacillus rhamnosus 10,000 MMU CELLS/CAPSULE PO SCH ×2 (07:37→19:28)
[2018-05-07] MEDS: HYDROcodone/acetaminophen 10/325mg tab PO PRN (07:38)
[2018-05-07] MEDS: carVEDilol 12.5mg tablet PO SCH ×3 (07:38→20:00)
[2018-05-07 08:05] LABS: ALANINE AMINOTRANSFERASE 20 U/L (12-78); ALBUMIN 2.4 G/DL (3.4-5.0); ALBUMIN/GLOBULIN RATIO 0.8 (1.1-1.5); ALKALINE PHOSPHATASE 81 IU/L (46-116); ANION GAP -1 (8-16); ASPARTATE AMINO TRANSFERASE 17 U/L (10-37); BILIRUBIN,TOTAL 0.4 MG/DL (0.1-1.0); BLOOD UREA NITROGEN 94 MG/DL (7-18); BUN/CREATININE RATIO 68.6 (6.6-38.0); CALCIUM 9.1 MG/DL (8.5-10.1); CHLORIDE 91 MMOL/L (99-107); CREATININE 1.37 MG/DL (0.40-0.90); GLUCOSE 440 MG/DL (70-104); POTASSIUM 4.2 MMOL/L (3.5-5.1); SODIUM 131 MMOL/L (135-145); TOTAL PROTEIN 5.5 G/DL (6.4-8.2); eGFR 38 ML/MIN
[2018-05-07 08:12] LABS: TOTAL CARBON DIOXIDE 41.2 MMOL/L (24-32)
[2018-05-07] MEDS ORDERED: ceFAZolin 1000mg inj ONE (12:38)
[2018-05-07] MEDS ORDERED: LIDOcaine 1% (10mg/ml) 2ml vial ONE (12:39)
[2018-05-07] MEDS ORDERED: ringers solution, lacted 1,000 ML IV SCH (12:39)
[2018-05-07] MEDS ORDERED: BUPIVAcaine/PF 2.5mg/ml (0.25%) 10ml vial ONE ×2 (12:39)
[2018-05-07] MEDS ORDERED: ondansetron/PF 4mg/2ml inj IV PRN ×2 (12:40→15:30)
[2018-05-07] MEDS ORDERED: fentaNYL/PF 50MCG/1 ML 2ML syringe IV PRN ×3 (12:40→15:30)
[2018-05-07] MEDS ORDERED: labetalol 20mg/4ml (5mg/ml) syringe IV PRN (12:40)
[2018-05-07] MEDS ORDERED: hydrALAZINE 20mg/ml inj. IV PRN (12:40)
[2018-05-07] MEDS ORDERED: morphine 4 MG/ML inj SYRINge IV PRN ×2 (12:40)
[2018-05-07] MEDS ORDERED: fentaNYL/PF 50MCG/1 ML 2ML syringe ONE ×2 (12:44→13:28)
[2018-05-07] MEDS ORDERED: rocuronium 10mg/ml inj IV ONE (12:45)
[2018-05-07] MEDS ORDERED: etomidate 2mg/ml inj. ONE (12:45)
[2018-05-07] MEDS ORDERED: midazolam 2 mg/2 ml injection ONE ×2 (12:45→13:28)
[2018-05-07] MEDS ORDERED: hydrALAZINE 20mg/ml inj. IV ONE (12:58)
[2018-05-07] MEDS ORDERED: sevoflurane 250ml liquid IH ONE (12:58)
[2018-05-07] MEDS ORDERED: ceFOXitin 1000 MG inj ONE ×2 (13:36)
[2018-05-07] MEDS: ceFAZolin 1000mg inj ONE (13:40)
[2018-05-07] MEDS: BUPIVAcaine/PF 2.5mg/ml (0.25%) 10ml vial ONE (13:56)
[2018-05-07] MEDS: dexmedetomidin/NS 400mcg/100ml 100 ML IV SCH (14:20)
[2018-05-07] MEDS ORDERED: insulin regular, human 100 UNIT in normal saline 100ml IV soln 99 ML IV SCH ×2 (15:15)
[2018-05-07 15:26] LABS: ABG BASE EXCESS 14.4 mmol/L (-2.0-3.0); ABG HCO3 34.4 mmol/L (22.0-26.0); ABG OXYGEN SATURATION 99.1 % (95-98); ABG PCO2 (T) 27.8 mmHg (32.0-45.0); ABG PO2 (T) 157.2 mmHg (83-108); FCOHb 0.3 % (0.5-1.5); FMetHb 0.3 % (0.3-1.12); FO2Hb 98.5 % (94-100); MINUTE VOLUME 12 L/min; PEEP 5 cm H2O; RESPIRATORY RATE 16 b/min; RESPIRATORY RATE (OBSERVED) 16 b/min; TIDAL VOLUME 700 mL
[2018-05-07] MEDS ORDERED: midazolam 2 mg/2 ml injection IV ONE (15:30)
[2018-05-07] MEDS ORDERED: potassium Cl 40MEQ/250ML bag 250 ML IV PRN (15:30)
[2018-05-07] MEDS: normal saline 1000ml 1,000 ML IV SCH (15:30)
[2018-05-07] MEDS ORDERED: potassium Cl 40MEQ/250ML bag 250 ML IV SCH (15:30)
[2018-05-07] MEDS ORDERED: FENTANYL-0.9 % NACL/PF 100 ML IV PRN (15:30)
[2018-05-07] MEDS ORDERED: potassium Cl 40MEQ/NS 500ml 500 ML IV PRN ×2 (15:30)
[2018-05-07] MEDS ORDERED: midazolam 100mg in NS 100ml 100 ML IV PRN (15:30)
[2018-05-07] MEDS ORDERED: acetaminophen 325mg tablet PO PRN ×2 (15:30)
[2018-05-07] MEDS ORDERED: ipratropium/albuterol 3ml nebule NEB PRN (15:30)
[2018-05-07] MEDS ORDERED: potassium Cl 20 mEq SR tablet PO PRN ×2 (15:30)
[2018-05-07] MEDS: lactose-reduced food (Ensure Enlive) - 237ml bottle PO SCH (17:00)
[2018-05-07] MEDS ORDERED: MESSAGE TO PHARMACY PO ONE (17:25)
[2018-05-07] MEDS ORDERED: glucagon, human recombinant 1mg kit SUBCUT PRN (17:25)
[2018-05-07] MEDS ORDERED: dextrose 50%-water 50ml dispensing syringe IV PRN ×2 (17:25)
[2018-05-07] MEDS ORDERED: dextrose ORAL solution 15 GM/59 ML bottle PO PRN (17:25)
[2018-05-07] MEDS: insulin Lispro (HumaLOG) vial - multi-dose SQ SCH ×2 (17:58→20:54)
[2018-05-07] MEDS: ipratropium/albuterol 3ml nebule NEB SCH ×2 (19:00→23:00)
[2018-05-07 19:22] LABS: HEMOGLOBIN A1C 6.4 % (4.5-6.2)
[2018-05-07] MEDS: famotidine/PF 10 mg/ml inj IV SCH (19:28)
[2018-05-07] MEDS ORDERED: docusate sod 100mg capsule PO SCH (20:00)
[2018-05-07] MEDS: insulin glargine (Lantus) pen - multi-dose SQ SCH (20:56)
[2018-05-08] VITALS (24 sets, daily range): BP systolic 123–186; BP diastolic 46–80
[2018-05-08] MEDS: normal saline 1000ml 1,000 ML IV SCH ×4 (01:57→17:28)
[2018-05-08 02:47] LABS: BASOPHILS % (AUTO) 0 % (0-1); EOSINOPHILS % (AUTO) 0 % (0-6); HEMATOCRIT 32.3 % (35.0-45.0); HEMOGLOBIN 10.8 g/dl (12.0-16.0); LYMPHOCYTES # (AUTO) 0.2 X10'3 (1.1-4.8); LYMPHOCYTES % (AUTO) 1.8 % (21-51); MEAN CORPUSCULAR HEMOGLOBIN 29.3 PG (27.0-31.0); MEAN CORPUSCULAR HGB CONC 33.5 % (33.0-36.5); MEAN CORPUSCULAR VOLUME 87.6 FL (78-98); MEAN PLATELET VOLUME 8.1 FL (7.4-10.4); MONOCYTES # (AUTO) 0.4 X10'3 (0-0.9); MONOCYTES % (AUTO) 2.9 % (2-12); NEUTROPHILS # (AUTO) 11.8 X10'3 (1.8-7.7); NEUTROPHILS % (AUTO) 95.3 % (42-75); PLATELET COUNT 288 X10'3 (140-440); RED BLOOD COUNT 3.69 X10'6 (4.20-5.60); RED CELL DISTRIBUTION WIDTH 13.2 % (11.5-14.5); WHITE BLOOD COUNT 12.4 X10'3 (4.5-11.0)
[2018-05-08] MEDS: methylPREDNISolone sod succ/PF 40mg inj. IV SCH ×4 (02:48→20:02)
[2018-05-08 02:54] LABS: ALANINE AMINOTRANSFERASE 72 U/L (12-78); ALBUMIN 2.3 G/DL (3.4-5.0); ALBUMIN/GLOBULIN RATIO 0.8 (1.1-1.5); ALKALINE PHOSPHATASE 62 IU/L (46-116); ANION GAP 4 (8-16); ASPARTATE AMINO TRANSFERASE 42 U/L (10-37); BILIRUBIN,TOTAL 0.7 MG/DL (0.1-1.0); BLOOD UREA NITROGEN 95 MG/DL (7-18); BUN/CREATININE RATIO 65.5 (6.6-38.0); CALCIUM 8.9 MG/DL (8.5-10.1); CHLORIDE 96 MMOL/L (99-107); CREATININE 1.45 MG/DL (0.40-0.90); GLUCOSE 245 MG/DL (70-104); MAGNESIUM 2.4 MG/DL (1.5-2.4); PARTIAL THROMBOPLASTIN TIME 27 SECONDS (22-32); PHOSPHORUS 3.2 MG/DL (2.3-4.5); POTASSIUM 3.6 MMOL/L (3.5-5.1); SODIUM 137 MMOL/L (135-145); TOTAL CARBON DIOXIDE 36.9 MMOL/L (24-32); TOTAL PROTEIN 5.1 G/DL (6.4-8.2); eGFR 35 ML/MIN
[2018-05-08] MEDS: insulin Lispro (HumaLOG) vial - multi-dose SQ SCH ×4 (02:54→21:38)
[2018-05-08] MEDS: ipratropium/albuterol 3ml nebule NEB SCH ×6 (03:00→22:50)
[2018-05-08 03:46] LABS: ABG HCO3 29.8 mmol/L (22.0-26.0); ABG OXYGEN SATURATION 96.6 % (95-98); ABG PCO2 (T) 34.3 mmHg (32.0-45.0); ABG PH (T) 7.553 (7.350-7.450); ABG PO2 (T) 77.7 mmHg (83-108); FCOHb 0.1 % (0.5-1.5); FMetHb 0.2 % (0.3-1.12); FO2Hb 96.3 % (94-100); MINUTE VOLUME 6 L/min; PATIENT TEMPERATURE 36.1; PEEP 5 cm H2O; RESPIRATORY RATE 16 b/min; RESPIRATORY RATE (OBSERVED) 16 b/min; TIDAL VOLUME 350 mL; TOTAL HEMOGLOBIN 11.3 G/dl (12.0-16.0)
[2018-05-08] MEDS: dexmedetomidin/NS 400mcg/100ml 100 ML IV SCH (05:44)
[2018-05-08] MEDS: carVEDilol 12.5mg tablet PO SCH ×2 (07:46→20:03)
[2018-05-08] MEDS: lisinopril 10 MG tablet PO SCH (08:00)
[2018-05-08] MEDS: amiodarone 200mg tablet PO SCH ×2 (08:00→20:03)
[2018-05-08] MEDS ORDERED: docusate sodium 100mg/10ml UD cup PO PRN (08:33)
[2018-05-08] MEDS: famotidine/PF 10 mg/ml inj IV SCH ×2 (08:42→20:02)
[2018-05-08] MEDS: heparin, porcine 5000 units/ml vial SQ SCH ×2 (08:46→20:04)
[2018-05-08] MEDS: lactobacillus rhamnosus 10,000 MMU CELLS/CAPSULE PO SCH ×2 (09:07→20:03)
[2018-05-08] MEDS: docusate sodium 100mg/10ml UD cup PO SCH ×2 (09:24→20:02)
[2018-05-08] MEDS ORDERED: morphine 2 MG/ML inj. syringe IV PRN (10:35)
[2018-05-08] MEDS: HYDROcodone/acetaminophen 10/325mg tab PO PRN ×2 (15:57→22:45)
[2018-05-08] MEDS: lactose-reduced food (Ensure Enlive) - 237ml bottle PO SCH (17:00)
[2018-05-08] MEDS: mag hydrox/Alum hydrox/simeth 30ml oral suspension PO PRN (19:59)
[2018-05-08] MEDS: mineral oil/petrolatum ophthal oint EACHEYE SCH (20:00)
[2018-05-08] MEDS: insulin glargine (Lantus) pen - multi-dose SQ SCH (21:37)
[2018-05-09] VITALS (21 sets, daily range): BP systolic 142–181; BP diastolic 49–89
[2018-05-09] MEDS: mineral oil/petrolatum ophthal oint EACHEYE SCH ×2 (02:00→08:00)
[2018-05-09] MEDS: ipratropium/albuterol 3ml nebule NEB SCH ×6 (03:12→23:02)
[2018-05-09] MEDS: methylPREDNISolone sod succ/PF 40mg inj. IV SCH ×4 (03:22→20:41)
[2018-05-09] MEDS: HYDROcodone/acetaminophen 10/325mg tab PO PRN ×4 (04:37→22:49)
[2018-05-09 04:48] LABS: BASOPHILS % (AUTO) 0 % (0-1); EOSINOPHILS % (AUTO) 0 % (0-6); HEMATOCRIT 33.1 % (35.0-45.0); HEMOGLOBIN 10.7 g/dl (12.0-16.0); LYMPHOCYTES # (AUTO) 0.2 X10'3 (1.1-4.8); LYMPHOCYTES % (AUTO) 1.9 % (21-51); MEAN CORPUSCULAR HEMOGLOBIN 28.7 PG (27.0-31.0); MEAN CORPUSCULAR HGB CONC 32.3 % (33.0-36.5); MEAN CORPUSCULAR VOLUME 88.7 FL (78-98); MEAN PLATELET VOLUME 8.1 FL (7.4-10.4); MONOCYTES # (AUTO) 0.1 X10'3 (0-0.9); MONOCYTES % (AUTO) 0.9 % (2-12); NEUTROPHILS # (AUTO) 10.8 X10'3 (1.8-7.7); NEUTROPHILS % (AUTO) 97.2 % (42-75); PLATELET COUNT 273 X10'3 (140-440); RED BLOOD COUNT 3.73 X10'6 (4.20-5.60); RED CELL DISTRIBUTION WIDTH 14.5 % (11.5-14.5); WHITE BLOOD COUNT 11.1 X10'3 (4.5-11.0)
[2018-05-09 05:17] LABS: ALANINE AMINOTRANSFERASE 56 U/L (12-78); ALBUMIN 2.3 G/DL (3.4-5.0); ALBUMIN/GLOBULIN RATIO 0.9 (1.1-1.5); ALKALINE PHOSPHATASE 59 IU/L (46-116); ANION GAP 5 (8-16); ASPARTATE AMINO TRANSFERASE 19 U/L (10-37); BILIRUBIN,TOTAL 0.7 MG/DL (0.1-1.0); BLOOD UREA NITROGEN 104 MG/DL (7-18); BUN/CREATININE RATIO 68.9 (6.6-38.0); CALCIUM 8.6 MG/DL (8.5-10.1); CHLORIDE 95 MMOL/L (99-107); CREATININE 1.51 MG/DL (0.40-0.90); GLUCOSE 225 MG/DL (70-104); MAGNESIUM 2.5 MG/DL (1.5-2.4); PHOSPHORUS 4.9 MG/DL (2.3-4.5); POTASSIUM 3.6 MMOL/L (3.5-5.1); SODIUM 134 MMOL/L (135-145); TOTAL CARBON DIOXIDE 33.7 MMOL/L (24-32); TOTAL PROTEIN 4.9 G/DL (6.4-8.2); eGFR 34 ML/MIN
[2018-05-09 05:21] LABS: PARTIAL THROMBOPLASTIN TIME 24 SECONDS (22-32)
[2018-05-09] MEDS: normal saline 1000ml 1,000 ML IV SCH ×3 (07:30→22:50)
[2018-05-09] MEDS: docusate sodium 100mg/10ml UD cup PO SCH ×2 (08:00→20:42)
[2018-05-09] MEDS: heparin, porcine 5000 units/ml vial SQ SCH ×2 (08:14→20:42)
[2018-05-09] MEDS: lisinopril 10 MG tablet PO SCH (08:15)
[2018-05-09] MEDS: lactobacillus rhamnosus 10,000 MMU CELLS/CAPSULE PO SCH ×2 (08:15→20:42)
[2018-05-09] MEDS: famotidine/PF 10 mg/ml inj IV SCH (08:15)
[2018-05-09] MEDS: carVEDilol 12.5mg tablet PO SCH ×2 (08:15→20:42)
[2018-05-09] MEDS: lactose-reduced food (Ensure Enlive) - 237ml bottle PO SCH (08:16)
[2018-05-09] MEDS: amiodarone 200mg tablet PO SCH ×2 (08:19→20:42)
[2018-05-09] MEDS: insulin Lispro (HumaLOG) vial - multi-dose SQ SCH ×3 (10:06→20:50)
[2018-05-09] MEDS: LORazepam 2 mg/ml vial IV PRN ×2 (15:13→22:50)
[2018-05-09] MEDS: mag hydrox/Alum hydrox/simeth 30ml oral suspension PO PRN (16:48)
[2018-05-09] MEDS ORDERED: famotidine 20mg tablet PO SCH (20:00)
[2018-05-09] MEDS: insulin glargine (Lantus) pen - multi-dose SQ SCH (20:50)
[2018-05-10] VITALS (13 sets, daily range): BP systolic 148–172; BP diastolic 48–82
[2018-05-10] MEDS: methylPREDNISolone sod succ/PF 40mg inj. IV SCH ×4 (01:23→21:03)
[2018-05-10] MEDS: ipratropium/albuterol 3ml nebule NEB SCH ×6 (03:00→23:04)
[2018-05-10 04:50] LABS: BASOPHILS % (AUTO) 0 % (0-1); EOSINOPHILS # (AUTO) 0.1 X10'3 (0-0.9); EOSINOPHILS % (AUTO) 1.3 % (0-6); HEMATOCRIT 29.6 % (35.0-45.0); HEMOGLOBIN 9.6 g/dl (12.0-16.0); LYMPHOCYTES # (AUTO) 0.2 X10'3 (1.1-4.8); LYMPHOCYTES % (AUTO) 2.2 % (21-51); MEAN CORPUSCULAR HEMOGLOBIN 28.6 PG (27.0-31.0); MEAN CORPUSCULAR HGB CONC 32.2 % (33.0-36.5); MEAN CORPUSCULAR VOLUME 88.8 FL (78-98); MEAN PLATELET VOLUME 8.2 FL (7.4-10.4); MONOCYTES # (AUTO) 0.1 X10'3 (0-0.9); MONOCYTES % (AUTO) 1.2 % (2-12); NEUTROPHILS # (AUTO) 8.1 X10'3 (1.8-7.7); NEUTROPHILS % (AUTO) 95.3 % (42-75); PLATELET COUNT 244 X10'3 (140-440); RED BLOOD COUNT 3.34 X10'6 (4.20-5.60); RED CELL DISTRIBUTION WIDTH 14.3 % (11.5-14.5); WHITE BLOOD COUNT 8.5 X10'3 (4.5-11.0)
[2018-05-10] MEDS: HYDROcodone/acetaminophen 10/325mg tab PO PRN ×3 (04:55→20:44)
[2018-05-10 05:13] LABS: ALANINE AMINOTRANSFERASE 41 U/L (12-78); ALBUMIN 2.1 G/DL (3.4-5.0); ALBUMIN/GLOBULIN RATIO 0.9 (1.1-1.5); ALKALINE PHOSPHATASE 51 IU/L (46-116); ANION GAP 3 (8-16); ASPARTATE AMINO TRANSFERASE 17 U/L (10-37); BILIRUBIN,TOTAL 0.7 MG/DL (0.1-1.0); BLOOD UREA NITROGEN 99 MG/DL (7-18); BUN/CREATININE RATIO 63.9 (6.6-38.0); CALCIUM 8.2 MG/DL (8.5-10.1); CHLORIDE 97 MMOL/L (99-107); CREATININE 1.55 MG/DL (0.40-0.90); GLUCOSE 95 MG/DL (70-104); MAGNESIUM 2.3 MG/DL (1.5-2.4); PHOSPHORUS 4.7 MG/DL (2.3-4.5); POTASSIUM 3.6 MMOL/L (3.5-5.1); SODIUM 135 MMOL/L (135-145); TOTAL CARBON DIOXIDE 35.3 MMOL/L (24-32); TOTAL PROTEIN 4.5 G/DL (6.4-8.2); eGFR 33 ML/MIN
[2018-05-10 05:14] LABS: PARTIAL THROMBOPLASTIN TIME 30 SECONDS (22-32)
[2018-05-10] MEDS: amiodarone 200mg tablet PO SCH ×2 (07:46→21:03)
[2018-05-10] MEDS: lisinopril 10 MG tablet PO SCH (07:46)
[2018-05-10] MEDS: lactobacillus rhamnosus 10,000 MMU CELLS/CAPSULE PO SCH ×2 (07:46→21:04)
[2018-05-10] MEDS: docusate sodium 100mg/10ml UD cup PO SCH ×2 (07:47→21:03)
[2018-05-10] MEDS: carVEDilol 12.5mg tablet PO SCH ×2 (07:48→21:04)
[2018-05-10] MEDS: heparin, porcine 5000 units/ml vial SQ SCH ×2 (07:49→21:05)
[2018-05-10] MEDS: insulin Lispro (HumaLOG) vial - multi-dose SQ SCH ×3 (09:12→20:49)
[2018-05-10] MEDS: normal saline 1000ml 1,000 ML IV SCH ×2 (10:10→11:48)
[2018-05-10] MEDS ORDERED: LORazepam 1 MG tablet PO ONE (20:55)
[2018-05-11] MEDS: insulin glargine (Lantus) pen - multi-dose SQ SCH ×2 (00:26→21:59)
[2018-05-11] MEDS: ipratropium/albuterol 3ml nebule NEB SCH ×3 (02:59→11:00)
[2018-05-11 03:00] VITALS: BP 173/68
[2018-05-11] MEDS: normal saline 1000ml 1,000 ML IV SCH ×2 (03:04→17:35)
[2018-05-11] MEDS: methylPREDNISolone sod succ/PF 40mg inj. IV SCH ×4 (03:04→21:12)
[2018-05-11 06:00] VITALS: BP 149/68
[2018-05-11 06:19] LABS: ALANINE AMINOTRANSFERASE 37 U/L (12-78); ALBUMIN 2.2 G/DL (3.4-5.0); ALBUMIN/GLOBULIN RATIO 0.9 (1.1-1.5); ALKALINE PHOSPHATASE 57 IU/L (46-116); ANION GAP 4 (8-16); ASPARTATE AMINO TRANSFERASE 14 U/L (10-37); BILIRUBIN,TOTAL 0.7 MG/DL (0.1-1.0); BLOOD UREA NITROGEN 95 MG/DL (7-18); CALCIUM 8.3 MG/DL (8.5-10.1); CHLORIDE 98 MMOL/L (99-107); CREATININE 1.44 MG/DL (0.40-0.90); GLUCOSE 205 MG/DL (70-104); MAGNESIUM 2.2 MG/DL (1.5-2.4); POTASSIUM 3.9 MMOL/L (3.5-5.1); SODIUM 135 MMOL/L (135-145); TOTAL CARBON DIOXIDE 32.6 MMOL/L (24-32); TOTAL PROTEIN 4.7 G/DL (6.4-8.2); eGFR 35 ML/MIN
[2018-05-11] MEDS: lisinopril 10 MG tablet PO SCH (09:05)
[2018-05-11] MEDS: carVEDilol 12.5mg tablet PO SCH ×2 (09:05→21:14)
[2018-05-11] MEDS: HYDROcodone/acetaminophen 10/325mg tab PO PRN ×3 (09:06→21:31)
[2018-05-11] MEDS: amiodarone 200mg tablet PO SCH ×2 (09:06→21:14)
[2018-05-11] MEDS: lactobacillus rhamnosus 10,000 MMU CELLS/CAPSULE PO SCH ×2 (09:06→21:13)
[2018-05-11] MEDS: heparin, porcine 5000 units/ml vial SQ SCH ×2 (09:07→21:13)
[2018-05-11] MEDS: mag hydrox/Alum hydrox/simeth 30ml oral suspension PO PRN ×2 (09:08→16:55)
[2018-05-11] MEDS: insulin Lispro (HumaLOG) vial - multi-dose SQ SCH ×3 (09:39→19:49)
[2018-05-11 11:00] VITALS: BP 183/65
[2018-05-11 12:30] LABS: BASOPHILS % (AUTO) 0 % (0-1); EOSINOPHILS # (AUTO) 0.1 X10'3 (0-0.9); HEMATOCRIT 31.7 % (35.0-45.0); HEMOGLOBIN 10.3 g/dl (12.0-16.0); LYMPHOCYTES # (AUTO) 0.1 X10'3 (1.1-4.8); LYMPHOCYTES % (AUTO) 1.9 % (21-51); MEAN CORPUSCULAR HEMOGLOBIN 28.5 PG (27.0-31.0); MEAN CORPUSCULAR HGB CONC 32.6 % (33.0-36.5); MEAN CORPUSCULAR VOLUME 87.4 FL (78-98); MEAN PLATELET VOLUME 8.1 FL (7.4-10.4); MONOCYTES # (AUTO) 0.1 X10'3 (0-0.9); MONOCYTES % (AUTO) 1.9 % (2-12); NEUTROPHILS # (AUTO) 6.4 X10'3 (1.8-7.7); NEUTROPHILS % (AUTO) 95.2 % (42-75); PLATELET COUNT 216 X10'3 (140-440); RED BLOOD COUNT 3.63 X10'6 (4.20-5.60); RED CELL DISTRIBUTION WIDTH 14.3 % (11.5-14.5); WHITE BLOOD COUNT 6.7 X10'3 (4.5-11.0)
[2018-05-11 15:00] VITALS: BP 147/53
[2018-05-11 18:00] VITALS: BP 150/54
[2018-05-11] MEDS: docusate sod 100mg capsule PO SCH (20:00)
[2018-05-11 22:00] VITALS: BP 164/59
[2018-05-12] VITALS (9 sets, daily range): BP systolic 118–176; BP diastolic 37–70
[2018-05-12] MEDS: methylPREDNISolone sod succ/PF 40mg inj. IV SCH ×2 (01:35→07:16)
[2018-05-12] MEDS: HYDROcodone/acetaminophen 10/325mg tab PO PRN ×2 (03:02→09:37)
[2018-05-12 05:50] LABS: ALANINE AMINOTRANSFERASE 33 U/L (12-78); ALBUMIN 2.2 G/DL (3.4-5.0); ALBUMIN/GLOBULIN RATIO 0.9 (1.1-1.5); ALKALINE PHOSPHATASE 57 IU/L (46-116); ANION GAP 3 (8-16); ASPARTATE AMINO TRANSFERASE 16 U/L (10-37); BILIRUBIN,TOTAL 0.6 MG/DL (0.1-1.0); BLOOD UREA NITROGEN 88 MG/DL (7-18); BUN/CREATININE RATIO 69.8 (6.6-38.0); CALCIUM 8.2 MG/DL (8.5-10.1); CHLORIDE 100 MMOL/L (99-107); CREATININE 1.26 MG/DL (0.40-0.90); GLUCOSE 121 MG/DL (70-104); MAGNESIUM 2.2 MG/DL (1.5-2.4); PHOSPHORUS 4.2 MG/DL (2.3-4.5); POTASSIUM 4.1 MMOL/L (3.5-5.1); SODIUM 137 MMOL/L (135-145); TOTAL CARBON DIOXIDE 34.5 MMOL/L (24-32); TOTAL PROTEIN 4.6 G/DL (6.4-8.2); eGFR 41 ML/MIN
[2018-05-12] MEDS: docusate sod 100mg capsule PO SCH ×2 (07:09→20:15)
[2018-05-12] MEDS: amiodarone 200mg tablet PO SCH ×2 (07:10→20:14)
[2018-05-12] MEDS: carVEDilol 12.5mg tablet PO SCH ×2 (07:12→20:00)
[2018-05-12] MEDS: lactobacillus rhamnosus 10,000 MMU CELLS/CAPSULE PO SCH ×2 (07:13→20:23)
[2018-05-12] MEDS: lisinopril 10 MG tablet PO SCH (07:15)
[2018-05-12] MEDS: insulin Lispro (HumaLOG) vial - multi-dose SQ SCH ×3 (09:34→19:39)
[2018-05-12] MEDS ORDERED: LORazepam 1 MG tablet PO ONE (12:35)
[2018-05-12] MEDS: heparin, porcine 5000 units/ml vial SQ SCH ×2 (13:48→20:18)
[2018-05-12] MEDS ORDERED: cloNIDine 0.1 mg tablet PO ONE (14:15)
[2018-05-12] MEDS: insulin glargine (Lantus) pen - multi-dose SQ SCH (23:31)
[2018-05-13] MEDS: HYDROcodone/acetaminophen 10/325mg tab PO PRN ×3 (01:25→13:42)
[2018-05-13 02:00] VITALS: BP 128/69
[2018-05-13 06:15] VITALS: BP 144/37
[2018-05-13] MEDS: dextrose ORAL solution 15 GM/59 ML bottle PO PRN ×2 (07:29→07:43)
[2018-05-13 07:34] LABS: ALANINE AMINOTRANSFERASE 32 U/L (12-78); ALBUMIN/GLOBULIN RATIO 0.9 (1.1-1.5); ALKALINE PHOSPHATASE 52 IU/L (46-116); ANION GAP 3 (8-16); ASPARTATE AMINO TRANSFERASE 15 U/L (10-37); BILIRUBIN,TOTAL 0.6 MG/DL (0.1-1.0); BLOOD UREA NITROGEN 81 MG/DL (7-18); BUN/CREATININE RATIO 68.6 (6.6-38.0); CALCIUM 7.8 MG/DL (8.5-10.1); CHLORIDE 101 MMOL/L (99-107); CREATININE 1.18 MG/DL (0.40-0.90); GLUCOSE 64 MG/DL (70-104); MAGNESIUM 2.1 MG/DL (1.5-2.4); PHOSPHORUS 3.9 MG/DL (2.3-4.5); POTASSIUM 3.8 MMOL/L (3.5-5.1); SODIUM 139 MMOL/L (135-145); TOTAL CARBON DIOXIDE 34.7 MMOL/L (24-32); TOTAL PROTEIN 4.2 G/DL (6.4-8.2); eGFR 45 ML/MIN
[2018-05-13] MEDS: carVEDilol 12.5mg tablet PO SCH (08:00)
[2018-05-13] MEDS ORDERED: lisinopril 10 MG tablet PO SCH (08:00)
[2018-05-13] MEDS: lactobacillus rhamnosus 10,000 MMU CELLS/CAPSULE PO SCH (08:15)
[2018-05-13] MEDS: docusate sod 100mg capsule PO SCH (08:16)
[2018-05-13] MEDS: amiodarone 200mg tablet PO SCH (08:17)
[2018-05-13] MEDS: heparin, porcine 5000 units/ml vial SQ SCH (08:21)
[2018-05-13] MEDS ORDERED: prednisone 10mg tablet PO SCH (08:30)
[2018-05-13 11:00] VITALS: BP 130/38
[2018-05-13] MEDS: mag hydrox/Alum hydrox/simeth 30ml oral suspension PO PRN (11:49)
[2018-05-13 13:17] VITALS: BP 174/63
== END 2018-05-13 14:21 | DRG 417 ==
LOC: ER 18:47 → ED HOLD 04-19 01:50 → SUR 3N 04-19 04:10 → ICU 2S 04-21 18:09 → SUR 3N 04-27 12:05 → PCU 3S 04-29 16:16 → ICU 2S 05-07 12:10 → PCU 3S 05-10 11:33
PROVIDERS: ADMIT Internal Medicine; ATTEND Internal Medicine Gastroenterology
PROC: BF101ZZ Fluoroscopy of Bile Ducts using Low Osmolar Contrast (ICD-10-PCS; principal; 2018-04-19)
PROC: 0F798DZ Dilation of Common Bile Duct with Intraluminal Device, Via Natural or Artificial Opening Endoscopic (ICD-10-PCS; 2018-04-19)
PROC: 5A09357 Assistance with Respiratory Ventilation, Less than 24 Consecutive Hours, Continuous Positive Airway Pressure (ICD-10-PCS; 2018-04-21)
PROC: 5A09357 Assistance with Respiratory Ventilation, Less than 24 Consecutive Hours, Continuous Positive Airway Pressure (ICD-10-PCS; 2018-04-22)
PROC: 5A09457 Assistance with Respiratory Ventilation, 24-96 Consecutive Hours, Continuous Positive Airway Pressure (ICD-10-PCS; 2018-04-23)
PROC: 5A09357 Assistance with Respiratory Ventilation, Less than 24 Consecutive Hours, Continuous Positive Airway Pressure (ICD-10-PCS; 2018-04-25)
PROC: 5A09357 Assistance with Respiratory Ventilation, Less than 24 Consecutive Hours, Continuous Positive Airway Pressure (ICD-10-PCS; 2018-05-02)
PROC: 5A09357 Assistance with Respiratory Ventilation, Less than 24 Consecutive Hours, Continuous Positive Airway Pressure (ICD-10-PCS; 2018-05-06)
PROC: 0FT44ZZ Resection of Gallbladder, Percutaneous Endoscopic Approach (ICD-10-PCS; 2018-05-07)
PROC: 5A09357 Assistance with Respiratory Ventilation, Less than 24 Consecutive Hours, Continuous Positive Airway Pressure (ICD-10-PCS; 2018-05-09)
DX: K85.10 Biliary acute pancreatitis without necrosis or infection (principal); I50.33 Acute on chronic diastolic (congestive) heart failure; J96.21 Acute and chronic respiratory failure with hypoxia; J96.22 Acute and chronic respiratory failure with hypercapnia; N17.9 Acute kidney failure, unspecified; E87.4 Mixed disorder of acid-base balance; N39.0 Urinary tract infection, site not specified; E87.1 Hypo-osmolality and hyponatremia; I13.0 Hypertensive heart and chronic kidney disease with heart failure and stage 1 through stage 4 chronic kidney disease, or unspecified chronic kidney disease; I48.92 Unspecified atrial flutter; J44.1 Chronic obstructive pulmonary disease with (acute) exacerbation; E11.22 Type 2 diabetes mellitus with diabetic chronic kidney disease; K80.70 Calculus of gallbladder and bile duct without cholecystitis without obstruction; D64.9 Anemia, unspecified; N18.3 Chronic kidney disease, stage 3 (moderate); G89.29 Other chronic pain; M54.9 Dorsalgia, unspecified; B96.20 Unspecified Escherichia coli [E. coli] as the cause of diseases classified elsewhere; E11.65 Type 2 diabetes mellitus with hyperglycemia; E86.0 Dehydration; R94.5 Abnormal results of liver function studies; E66.01 Morbid (severe) obesity due to excess calories; E78.5 Hyperlipidemia, unspecified; F17.200 Nicotine dependence, unspecified, uncomplicated; G47.33 Obstructive sleep apnea (adult) (pediatric); I48.0 Paroxysmal atrial fibrillation; Z79.01 Long term (current) use of anticoagulants; Z79.899 Other long term (current) drug therapy; Z79.82 Long term (current) use of aspirin; Z68.39 Body mass index [BMI] 39.0-39.9, adult; Z71.6 Tobacco abuse counseling
CPT/HCPCS: 36415; 36600; 43274; 70486; 71045; 80048; 80053; 80076; 81001; 81003; 82140; 82150; 82570; 82803; 82948; 83036; 83690; 83735; 83880; 83930; 83935; 84100; 84145; 84300; 84439; 84443; 84484; 85018; 85025; 85610; 85730; 87070; 87077; 87088; 87186; 88304; 93005; 93306; 93971; 94002; 94003; 94640; 94660; 94760; 96361; 96374; 96375; 97110; 97116; 97161; 97530; 99153; 99291; 99292; A4315; A4620; A6213; A6250; A6449; A7000; C9113; G0500; J0360; J0690; J0692; J0694; J0696; J1170; J1200; J1610; J1644; J1815; J1940; J1956; J2020; J2060; J2175; J2250; J2270; J2405; J2920; J3010; J3490; J7030; J7120; J7512; P9047